=== PATIENT | male | born 1940 | race Caucasian/White ===

== ENCOUNTER → 2018-04-15 10:38 | Outpatient (CLI) | payer MEDICARE, BC, SELFPAY ==
--- NOTE | 2018-04-15 | DI.CT.S_ITS ---
PROCEDURE: CT ABDOMEN PELVIS W CON INDICATIONS: GENERALIZED ABDOMINAL PAIN TECHNIQUE: After the administration of oral and intravenous contrast, 5 mm thick sections acquired from the diaphragms to the symphysis. 5 mm thick coronal and sagittal reformats were performed. For radiation dose reduction, the following was used: automated exposure control, adjustment of mA and/or kV according to patient size. COMPARISON: [facility], , ABDOMEN LIMITED, 03/05/2017, 10:57. [facility], , RENAL COMPLETE, 03/12/2017, 9:47. FINDINGS: Image quality: Excellent. ABDOMEN: Lung bases: Lung bases are clear. Heart size is normal. Solid organs: Liver is normal in size and enhancement. Gallbladder appears normal. Biliary system is non-dilated. Pancreas enhances normally. Spleen is normal in size and enhancement. No adrenal nodules. Kidneys are normal in size and enhancement, without hydronephrosis but the left kidney is pelvic in positioning.. Peritoneum and bowel: Stomach, small bowel, and colon loops are normal in caliber and wall thickness. No free fluid or air. Moderate colonic obstipation. Nodes and vessels: No retroperitoneal or mesenteric adenopathy. Aorta and inferior vena cava are normal in caliber. Miscellaneous: No ventral hernias. PELVIS: Genitourinary: Bladder wall thickness is normal. Miscellaneous: No inguinal hernias or adenopathy. Moderate colonic obstipation. Left kidney within the left hemipelvis. Bones: No suspicious bony lesions. No vertebral body compression fractures. IMPRESSION: Moderate colonic obstipation, pelvic positioning of the left kidney. Dictated by: Damon Toth M.D. on 04/15/2018 at 14:01 Approved by: Damon Toth M.D. on 04/15/2018 at 14:04
== END ==
PROVIDERS: PCP Physician Assistant; Visit Provider Nurse Practitioner Family
DX: R10.84 Generalized abdominal pain (principal); K59.09 Other constipation
CPT/HCPCS: 74177; Q9967

== ENCOUNTER → 2019-02-24 10:04 | Outpatient (CLI) | payer MEDICARE, BC, SELFPAY ==
--- NOTE | 2019-02-24 | DI.US.S_ITS ---
PROCEDURE: US THYROID INDICATIONS: FACIAL FLUSHING, HYPERCALCEMIA TECHNIQUE: Real-time scanning was performed of the thyroid gland, with image documentation. COMPARISON: None. FINDINGS: Right: Thyroid lobe measures 4 x 1.3 x 1.6 cm, and is homogeneous in echotexture. Left: Thyroid lobe measures 2.7 x 0.8 x 1.1 cm, and is homogenous in echotexture. Isthmus: 4 mm thick. Nodule number: #1 Location: Upper to mid pole of right thyroid lobe Size: 5 x 3 x 4 mm. Composition: Predominately solid Echogenicity: Hypoechoic Shape: Wider than tall Margins: Smooth Echogenic foci: Punctate Total points: 6 ACR TI-RADS category: 4, moderately suspicious Nodule number: #2 Location: Lower pole of right thyroid lobe Size: 8 x 4 x 8 mm Composition: Solid Echogenicity: Hypoechoic Shape: Wider than tall Margins: Smooth Echogenic foci: None Total points: 4 ACR TI-RADS category: 4, moderately suspicious IMPRESSION: 1. 2 subcentimeter and moderately suspicious nodules in right thyroid lobe as described above. Continued sonographic followup is recommended. ACR TI-RADS definitions and recommendations: TI-RADS 1 (benign): 0 points. FNA not needed. TI-RADS 2 (not suspicious): 2 points. FNA not needed. TI-RADS 3 (mildly suspicious): 3 points. * FNA if 2.5 cm or larger, follow up if 1.5 cm or larger (at 1, 3, and 5 years). TI-RADS 4 (moderately suspicious): 4-6 points. * FNA if 1.5 cm or larger, follow up if 1 cm or larger (at 1, 2, 3, and 5 years). TI-RADS 5 (highly suspicious): 7 points or more. * FNA if 1 cm or larger, follow up if 0.5 cm or larger (every year for 5 years). Dictated by: Macho Lakhani M.D. on 02/24/2019 at 11:48 Approved by: Macho Lakhani M.D. on 02/24/2019 at 11:59
== END ==
PROVIDERS: PCP Physician Assistant; Visit Provider Family Medicine
DX: R23.2 Flushing (principal); E83.52 Hypercalcemia; E04.2 Nontoxic multinodular goiter
CPT/HCPCS: 76536

== ENCOUNTER → 2019-05-19 08:43 | Outpatient (CLI) | payer MEDICARE, BC, SELFPAY ==
--- NOTE | 2019-05-19 | DI.RAD.S_ITS ---
PROCEDURE: XR HIP W PEL IF DONE LT MIN 4V INDICATIONS: RIGHT HIP PAIN TECHNIQUE: AP pelvis with lateral view(s) of the left and right hip(s). COMPARISON: None. FINDINGS: Bones: No fractures or dislocations. Lower lumbar spondylosis. Bilateral hip degeneration. Pelvic ring appears intact. No suspicious bony lesions. Soft tissues: The visualized bowel gas pattern is normal. No suspicious soft tissue calcifications. IMPRESSION: Mild bilateral hip joint degeneration. If the patient's pain or other symptoms persist, consider further evaluation with MRI Lower lumbar spondylosis. Dictated by: Gerardo Reddy M.D. on 05/19/2019 at 10:53 Approved by: Gerardo Reddy M.D. on 05/19/2019 at 10:55
== END ==
PROVIDERS: PCP Family Medicine; Visit Provider Family Medicine
DX: M25.551 Pain in right hip (principal); M16.0 Bilateral primary osteoarthritis of hip; M47.816 Spondylosis without myelopathy or radiculopathy, lumbar region
CPT/HCPCS: 73522

== ENCOUNTER 2019-10-08 14:17 | Emergency (ER) | payer MEDICARE, BC, SELFPAY ==
[2019-10-08 14:35] VITALS: BP 124/73; PULSE 85; RESP 14; TEMP 36.8; O2SAT 99; BMI 24.3
[2019-10-08 17:55] VITALS: BP 148/78; PULSE 68; RESP 18; O2SAT 93
--- NOTE | 2019-10-08 18:21 | ED.GENADULT ---
HPI - General Adult General Chief complaint: Urogenital-Male Stated complaint: possible kidney stone, sent by [facility] Time Seen by Provider: 10/08/19 17:58 Source: patient Mode of arrival: Ambulatory Limitations: no limitations History of Present Illness HPI narrative: 79-year-old male. 12-24 hours of left-sided flank pain. States it is worse with palpation. Does seem to come and go. No changes in bowel. No changes in urination. [place] Was given Flomax for concerns of a kidney stone. Was told to come to the emergency department for CT scan. Patient states that he has never had a kidney stone in the past. No skin rashes over the area. No nausea or vomiting. No fevers. Related Data Home Medications Medication Instructions Recorded Confirmed aspirin 81 mg PO QDAY #0 01/22/17 ferrous sulfate [Iron (ferrous 325 mg PO QDAY #0 01/22/17 sulfate)] cholecalciferol (vitamin D3) 1,000 unit PO QDAY #0 02/28/17 [Vitamin D3] omega 9-xej-zxg-fish oil [Fish Oil] 1,000 mg PO #0 02/28/17 metoprolol succinate 25 mg PO DAILY 10/08/19 10/08/19 Previous Rx's Medication Instructions Recorded omeprazole 20 mg PO QAM #90 cap 06/13/16 cyclobenzaprine 10 mg PO TID PRN #10 tab 10/08/19 Allergies Allergy/AdvReac Type Severity Reaction Status Date / Time No Known Drug Allergies Allergy Verified 10/08/19 14:35 Review of Systems Constitutional Constitutional: Denies fever(s) Cardiovascular Cardiovascular: Denies chest pain and Denies dyspnea Respiratory Respiratory: Denies dyspnea Gastrointestinal Gastrointestinal: Denies abdominal pain and Denies vomiting Genitourinary Genitourinary: Denies hematuria, Denies dysuria and Reports flank pain Musculoskeletal Musculoskeletal: Denies myalgias and Denies arthralgias Integumentary/Breasts Skin/Breast: Denies rash Neurologic Neurologic: Denies behavioral changes Psychiatric Psychiatric: Denies behavioral changes Hematologic/Lymphatic Hematologic/Lymphatic: Denies easy bleeding and Denies easy bruising Patient History Medical History 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) Gastroesophageal reflux disease (Acute) 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) Wears hearing aid (12/21/16) Social History marital status: lives independently: Yes Exam Initial Vital Signs Initial Vital Signs: Vital Signs Temperature 98.2 F 10/08/19 14:35 Pulse Rate 85 10/08/19 14:35 Respiratory Rate 14 10/08/19 14:35 Blood Pressure 124/73 10/08/19 14:35 Pulse Oximetry 99 10/08/19 14:35 Const General: cooperative and comfortable HENMT Head: normal to inspection and normocephalic Resp Effort & Inspection: normal respiratory effort Auscultation: clear to auscultation bilaterally Cardio Rate: regular rate Rhythm: regular rhythm GI Inspection: non-distended Palpation: soft and No firm Back/Spine/Pelvis Back: CVA tenderness (Left) Skin Lesions: no lesions Rashes: no rashes Neuro General: alert, awake and oriented x3 Cognition: normal cognition Speech: speech normal Extrem General: normal to inspection and capillary refill normal Psych Appearance: grossly normal and well kempt Scores GCS [place] coma scale eye opening: Spontaneous [place] coma scale verbal response: Orientated [place] coma scale motor response: Obey commands Lan coma scale total score: 15 Course Orders Ordered: ED Orders 10/08/19 18:25 CT abdomen pelvis w con Stat 10/08/19 18:29 Complete Blood Count AUTO DIFF Stat Comprehensive Metabolic Panel Stat Lipase Stat Partial Thromboplastin Time Stat Prothrombin Time INR Stat Vital Signs Vital signs: Vital Signs - 8 hr 10/08/19 17:55 10/08/19 19:53 Pulse Rate 68 61 Respiratory Rate 18 15 Blood Pressure 134/66 Blood Pressure [Right Arm] 148/78 H Pulse Oximetry 93 100 Medical Decision Making Lab Data Lab results reviewed: Yes I reviewed the patient's lab results. Result diagrams: 10/08/19 18:29 10/08/19 18:29 Labs: Lab Results 10/08/19 10/08/19 10/08/19 Range/Units 18:29 18:29 18:29 WBC 6.4 (4.5-11.0) X10^3/uL RBC 4.48 L (4.5-5.9) X10^6/uL Hgb 14.4 (13.5-17.5) g/dL Hct 41.8 (41-53) % MCV 93.3 (80-100) fL MCH 32.2 (26-34) PG MCHC 34.5 (30-36) % RDW 12.9 (11.6-14.8) % Plt Count 219 (150-400) X10^3/uL Neut % (Auto) 55.8 (50-75) % Lymph % (Auto) 30.4 (25-40) % [place] % (Auto) 10.0 (3-14) % Eos % (Auto) 2.9 (2-4) % Baso % (Auto) 0.9 (0-2) % Neut # (Auto) 3600 (1155-1439) /uL Lymph # (Auto) 1900 (6695-4511) /uL [place] # (Auto) 600 (0-900) /uL Eos # (Auto) 200 (0-450) /uL Baso # (Auto) 100 (0-100) /uL PT 11.8 (10.1-12.7) SECONDS INR 1.0 (0.9-1.3) APTT 31 (26.4-36.2) SECONDS Sodium 138 (137-145) mmol/L Potassium 4.8 (3.4-5.1) mmol/L Chloride 101 (98-107) mmol/L Carbon Dioxide 28 (22-32) mmol/L BUN 31 H (9-20) mg/dL Creatinine 1.00 (0.66-1.25) mg/dL Estimated GFR > 60.0 (>60) mL/min BUN/Creatinine Ratio 31.0 H (6-22) Glucose 100 (80-110) mg/dL Calcium 10.6 H (8.4-10.2) mg/dL Total Bilirubin 0.5 (0.2-1.3) mg/dL AST 28 (17-59) IU/L ALT 22 (<50) IU/L Alkaline Phosphatase 60 (38-126) U/L Total Protein 7.8 (6.3-8.2) g/dL Albumin 4.4 (3.5-5.0) g/dL Globulin 3.4 (1.7-4.1) g/dL Albumin/Globulin Ratio 1.3 (1.0-2.8) Lipase 241 (23-300) U/L Urine Dip Bedside Urine Glucose Negative Bedside Urine Bilirubin - Negative Bedside Urine Ketone - Negative Urine Specific [place] 1.015 Bedside Urine Occult Blood - Negative Bedside Urine pH 6.0 Bedside Urine Protein - Negative Bedside Urine Urobilinogen - Negative Bedside Urine Nitrite - Negative Bedside Urine Leukocytes - Negative Esterase Point of care testing: Urine Dip Bedside Urine Glucose Negative Bedside Urine Bilirubin - Negative Bedside Urine Ketone - Negative Urine Specific [place] 1.015 Bedside Urine Occult Blood - Negative Bedside Urine pH 6.0 Bedside Urine Protein - Negative Bedside Urine Urobilinogen - Negative Bedside Urine Nitrite - Negative Bedside Urine Leukocytes - Negative Esterase Imaging Data CT scan - abdomen/pelvis: Radiologist's Impression: [address] [address] [address] Scan Report Signed Patient: Jeramy Riley TMR#: [id number] : 9Acct:[id number] Age/Sex: 79 / MDate of Service: 10/08/19 Loc: ED Accession Number: [id number] Procedure: CT abdomen pelvis w con Ordering Provider: Prasanna Biggs D.O. PROCEDURE: CT ABDOMEN PELVIS W CON INDICATIONS: Left flank pain TECHNIQUE: After the administration of intravenous contrast, 5 mm thick sections acquired from the diaphragm to the symphysis. 5 mm coronal and sagittal reformats were acquired. For radiation dose reduction, the following was used: automated exposure control, adjustment of mA and/or kV according to patient size. COMPARISON: [facility], CT, CT ABDOMEN PELVIS W CON, 04/15/2018, 11:27. FINDINGS: Image quality: Excellent. ABDOMEN: Lung bases: Lung bases are clear. Heart size is normal. Solid organs: Hepatic steatosis Gallbladder unremarkable. Biliary system is non dilated. Pancreas enhances normally. Spleen is normal in size and enhancement. No adrenal nodules. No hydronephrosis. Left pelvic ectopic kidney. Simple appearing right renal cyst. Peritoneum and bowel: Bowel loops demonstrate normal wall thickness and caliber. No free fluid or air. Colonic diverticulosis is seen without evidence of acute complication. Normal appendix. Nodes and vessels: No retroperitoneal or mesenteric adenopathy by size criteria. Aorta and inferior vena cava are normal in size. Miscellaneous: No ventral hernias. PELVIS: Genitourinary: Bladder wall thickness is normal. Prostate is enlarged and there is presumed medium lobe hypertrophy although recommend clinical correlation No pelvic adenopathy. Post surgical changes related to bilateral inguinal hernia repair. No definite right-sided inguinal hernia. Small residual/recurrent left inguinal fat-containing hernia although the appearance is unchanged since 04/15/18 Bones: No suspicious bony lesions. No vertebral body compression fractures. Spondylosis and facet arthropathy. Diffuse osteopenia. IMPRESSION: Overall, no acute abnormality to explain left-sided flank pain. Grossly unchanged examination since 04/15/18 as discussed above Colonic diverticulosis is seen without evidence of acute complication. Dictated by: Gerardo Reddy M.D. on 10/08/2019 at 19:20 Approved by: Gerardo Reddy M.D. on 10/08/2019 at 19 MDM Narrative Medical decision making narrative: Patient's urine is clear. His chemistry is unremarkable. Kidney function test unremarkable. Has reproducible left flank symptoms. I initially informed him that it is unlikely a kidney stone given his exam however since he was sent from the [place] for CT scan 1 was ordered. It showed no kidney/ureteral stone and no other acute intra-abdominal pathology. Due to lack of a rash of low suspicion for zoster however patient was instructed that if he develops a rash over the next couple days he should be re-evaluated. Was reproducible with palpation. I do suspect a musculoskeletal etiology. We discussed return precautions and follow-up instructions. He expressed understanding agreement with plan. Discharge Plan Departure Patient Disposition: Home Clinical Impression: Acute left flank pain Discharge Date/Time: 10/08/19 19:55 Instructions: DI for Flank Pain Activity Restrictions/Additional Instructions: Recommend that if you develop a rash in the next 24-48 hours you get seen by your primary provider has this could be concerning for shingles. Take the muscle relaxer as needed. It can make you drowsy so be careful with getting up especially at night. Return to the emergency department for any new symptoms Prescriptions: New cyclobenzaprine 10 mg tablet 10 mg PO TID PRN (Reason: muscle spasm) Qty: 10 RF: 0 No Action omeprazole 20 MG capsule,delayed release(DR/EC) 20 mg PO QAM Qty: 90 RF: 3 aspirin 81 MG tablet,delayed release (DR/EC) 81 mg PO QDAY Qty: 0 RF: 0 ferrous sulfate [Iron (ferrous sulfate)] 325 MG tablet 325 mg PO QDAY Qty: 0 RF: 0 cholecalciferol (vitamin D3) [Vitamin D3] 1,000 UNIT tablet 1,000 unit PO QDAY Qty: 0 RF: 0 omega 2-scv-thy-fish oil [Fish Oil] 1,000 MG capsule 1,000 mg PO Qty: 0 RF: 0 metoprolol succinate 25 mg tablet extended release 24 hr 25 mg PO DAILY RF: 0 Referrals: Prasanna Zhang [Primary Care Provider] -
--- NOTE | 2019-10-08 18:25 | DI.CT.S_ITS ---
PROCEDURE: CT ABDOMEN PELVIS W CON INDICATIONS: Left flank pain TECHNIQUE: After the administration of intravenous contrast, 5 mm thick sections acquired from the diaphragm to the symphysis. 5 mm coronal and sagittal reformats were acquired. For radiation dose reduction, the following was used: automated exposure control, adjustment of mA and/or kV according to patient size. COMPARISON: [facility], CT, CT ABDOMEN PELVIS W CON, 04/15/2018, 11:27. FINDINGS: Image quality: Excellent. ABDOMEN: Lung bases: Lung bases are clear. Heart size is normal. Solid organs: Hepatic steatosis Gallbladder unremarkable. Biliary system is non dilated. Pancreas enhances normally. Spleen is normal in size and enhancement. No adrenal nodules. No hydronephrosis. Left pelvic ectopic kidney. Simple appearing right renal cyst. Peritoneum and bowel: Bowel loops demonstrate normal wall thickness and caliber. No free fluid or air. Colonic diverticulosis is seen without evidence of acute complication. Normal appendix. Nodes and vessels: No retroperitoneal or mesenteric adenopathy by size criteria. Aorta and inferior vena cava are normal in size. Miscellaneous: No ventral hernias. PELVIS: Genitourinary: Bladder wall thickness is normal. Prostate is enlarged and there is presumed medium lobe hypertrophy although recommend clinical correlation No pelvic adenopathy. Post surgical changes related to bilateral inguinal hernia repair. No definite right-sided inguinal hernia. Small residual/recurrent left inguinal fat-containing hernia although the appearance is unchanged since 04/15/18 Bones: No suspicious bony lesions. No vertebral body compression fractures. Spondylosis and facet arthropathy. Diffuse osteopenia. IMPRESSION: Overall, no acute abnormality to explain left-sided flank pain. Grossly unchanged examination since 04/15/18 as discussed above Colonic diverticulosis is seen without evidence of acute complication. Dictated by: Gerardo Reddy M.D. on 10/08/2019 at 19:20 Approved by: Gerardo Reddy M.D. on 10/08/2019 at 19:25
[2019-10-08 18:41] LABS: Add Manual Diff / Slide Review NO; Basophils Absolute Auto 100 /uL (0-100); Basophils Percent Auto 0.9 % (0-2); Eosinophils Absolute Auto 200 /uL (0-450); Eosinophils Percent Auto 2.9 % (2-4); Hematocrit 41.8 % (41-53); Hemoglobin 14.4 g/dL (13.5-17.5); Lymphocytes Absolute Auto 1900 /uL (1100-4500); Lymphocytes Percent Auto 30.4 % (25-40); Mean Corpuscular HGB Conc 34.5 % (30-36); Mean Corpuscular Hemoglobin 32.2 PG (26-34); Mean Corpuscular Volume 93.3 fL (80-100); Monocytes Absolute Auto 600 /uL (0-900); Neutrophils Absolute Auto 3600 /uL (1500-7000); Neutrophils Percent Auto 55.8 % (50-75); Platelet Count 219 X10^3/uL (150-400); Red Blood Cell Count 4.48 X10^6/uL (4.5-5.9); Red Cell Distribution Width 12.9 % (11.6-14.8); White Blood Cell Count 6.4 X10^3/uL (4.5-11.0)
[2019-10-08 18:45] LABS: Prothrombin Time 11.8 SECONDS (10.1-12.7)
[2019-10-08 18:48] LABS: PTT Partial Thromboplastin Tim 31 SECONDS (26.4-36.2)
[2019-10-08 18:50] LABS: Alanine Aminotransferase 22 IU/L (<50); Albumin 4.4 g/dL (3.5-5.0); Albumin Globulin Ratio 1.3 (1.0-2.8); Alkaline Phosphatase 60 U/L (38-126); Aspartate Aminotransferase 28 IU/L (17-59); Bilirubin Total 0.5 mg/dL (0.2-1.3); Blood Urea Nitrogen 31 mg/dL (9-20); Calcium 10.6 mg/dL (8.4-10.2); Carbon Dioxide 28 mmol/L (22-32); Chloride 101 mmol/L (98-107); Estimated Glomerular Filt Rate > 60.0 mL/min (>60); Globulin 3.4 g/dL (1.7-4.1); Glucose 100 mg/dL (80-110); HEMOLYSIS 16 (0-50); Lipase 241 U/L (23-300); Potassium 4.8 mmol/L (3.4-5.1); Sodium 138 mmol/L (137-145); Total Protein 7.8 g/dL (6.3-8.2)
[2019-10-08 19:53] VITALS: BP 134/66; PULSE 61; RESP 15; O2SAT 100
== END 2019-10-08 19:55 | disposition home or self-care (01) ==
PROVIDERS: Emergency Medicine; Emergency Provider Emergency Medicine; PCP Family Medicine
DX: R10.9 Unspecified abdominal pain (principal)
CPT/HCPCS: 36415; 74177; 80053; 81003; 83690; 85025; 85610; 85730; 99284; Q9967

== ENCOUNTER → 2020-11-22 09:49 | Outpatient (CLI) | payer MEDICARE, BC, SELFPAY ==
[2020-11-22 19:34] LABS: Add Manual Diff / Slide Review NO; Basophils Absolute Auto 100 /uL (0-100); Basophils Percent Auto 1.6 % (0-2); Eosinophils Absolute Auto 200 /uL (0-450); Eosinophils Percent Auto 4.4 % (2-4); Hematocrit 41.3 % (41-53); Hemoglobin 13.7 g/dL (13.5-17.5); Lymphocytes Absolute Auto 1700 /uL (1100-4500); Lymphocytes Percent Auto 39.7 % (25-40); Mean Corpuscular HGB Conc 33.2 % (30-36); Mean Corpuscular Hemoglobin 31.7 PG (26-34); Mean Corpuscular Volume 95.5 fL (80-100); Monocytes Absolute Auto 500 /uL (0-900); Monocytes Percent Auto 12.4 % (3-14); Neutrophils Absolute Auto 1800 /uL (1500-7000); Neutrophils Percent Auto 41.9 % (50-75); Platelet Count 219 X10^3/uL (150-400); Red Blood Cell Count 4.32 X10^6/uL (4.5-5.9); Red Cell Distribution Width 13.5 % (11.6-14.8); White Blood Cell Count 4.2 X10^3/uL (4.5-11.0)
[2020-11-22 19:38] LABS: Alanine Aminotransferase 23 IU/L (<50); Albumin Globulin Ratio 1.2 (1.0-2.8); Alkaline Phosphatase 66 U/L (38-126); Aspartate Aminotransferase 117 IU/L (17-59); BUN Creatinine Ratio 30.7 (6-22); Bilirubin Total 0.4 mg/dL (0.2-1.3); Blood Urea Nitrogen 27 mg/dL (9-20); Calcium 10.3 mg/dL (8.4-10.2); Carbon Dioxide 30 mmol/L (22-32); Chloride 104 mmol/L (98-107); Estimated Glomerular Filt Rate > 60.0 mL/min (>60); Globulin 3.3 g/dL (1.7-4.1); Glucose 81 mg/dL (80-110); HEMOLYSIS 25 (0-50); Potassium 4.7 mmol/L (3.4-5.1); Sodium 139 mmol/L (137-145); Total Protein 7.3 g/dL (6.3-8.2)
[2020-11-22 20:05] LABS: TSH w/ Reflex to FT4 1.36 uIU/mL (0.47-4.68)
== END ==
PROVIDERS: PCP Internal Medicine; Visit Provider Internal Medicine
DX: R06.02 Shortness of breath (principal); R53.83 Other fatigue
CPT/HCPCS: 80053; 84443; 85025

== ENCOUNTER 2021-08-29 14:21 | Emergency (ER) | payer MEDICARE, BC, SELFPAY ==
[2021-08-29] VITALS (11 sets, daily range): BP systolic 130–145; BP diastolic 64–93; PULSE 60–65; RESP 16–22; TEMP 36.3; O2SAT 91–100; BMI 24.3
[2021-08-29 15:28] LABS: Prothrombin Time 11.5 SECONDS (10.1-12.7)
[2021-08-29 15:29] LABS: Add Manual Diff / Slide Review NO; Basophils Absolute Auto 100 /uL (0-100); Basophils Percent Auto 1.2 % (0-2); Eosinophils Absolute Auto 300 /uL (0-450); Eosinophils Percent Auto 4.2 % (2-4); Hematocrit 40.1 % (41-53); Hemoglobin 13.5 g/dL (13.5-17.5); Lymphocytes Absolute Auto 1800 /uL (1100-4500); Lymphocytes Percent Auto 29.1 % (25-40); Mean Corpuscular HGB Conc 33.7 % (30-36); Mean Corpuscular Hemoglobin 32.1 PG (26-34); Mean Corpuscular Volume 95.2 fL (80-100); Monocytes Absolute Auto 800 /uL (0-900); Monocytes Percent Auto 12.5 % (3-14); Neutrophils Absolute Auto 3300 /uL (1500-7000); Platelet Count 231 X10^3/uL (150-400); Red Blood Cell Count 4.21 X10^6/uL (4.5-5.9); Red Cell Distribution Width 13.2 % (11.6-14.8); White Blood Cell Count 6.1 X10^3/uL (4.5-11.0)
[2021-08-29 15:31] LABS: PTT Partial Thromboplastin Tim 32 SECONDS (26.4-36.2)
--- NOTE | 2021-08-29 15:40 | DI.CT.S_ITS ---
PROCEDURE: CT ABDOMEN PELVIS W CON INDICATIONS: IV contrast only/abdominal pain/GI bleed TECHNIQUE: After the administration of intravenous contrast, axial sections acquired from the lung bases to the pubic symphysis. Coronal and sagittal reformats were performed. For radiation dose reduction, the following was used: automated exposure control, adjustment of mA and/or kV according to patient size. COMPARISON: [facility], CT, CT ABDOMEN PELVIS W CON, 10/08/2019, 18:57. FINDINGS: Image quality: Excellent. Lung bases: Unremarkable. Heart: No significant findings. ABDOMEN: Liver: Unremarkable. Gallbladder: Unremarkable. Biliary ducts: Unremarkable. Pancreas: Unremarkable. Spleen: Unremarkable. Adrenal Glands: Unremarkable. Kidneys and Ureters: Right kidney is normal in size and location. Left kidney is within the pelvis. Stomach and Bowel: Stomach and small bowel are grossly unremarkable. Appendix is not seen. No evidence of appendicitis. Moderate right colonic stool. There is thickening of the descending and sigmoid colon. Diverticulosis of the descending and sigmoid colon. Mild pericolonic fat stranding surrounds the sigmoid and distal descending colon. Peritoneum: No abnormal intraperitoneal fluid. No free air. Ventral Wall: No hernias. Abdominal Nodes: No retroperitoneal or mesenteric adenopathy by size criteria. Vessels: Aorta and inferior vena cava are normal in size. PELVIS: Pelvic Organs: Prostate is enlarged and indents the urinary bladder base, as before. Bladder: Unremarkable. Pelvic Nodes: No enlarged lymph nodes. Miscellaneous: No hernias are seen. Bones: Unremarkable. IMPRESSION: 1. Thickening of the distal descending and sigmoid colon. Differential considerations include ischemia, infection (e.g., diverticulitis), and inflammation. 2. Appendix not seen. No evidence of appendicitis. 3. Enlarged prostate. Recommend correlation with PSA values. Dictated by: Amber Rendon M.D. on 08/29/2021 at 16:26 Approved by: Amber Rendon M.D. on 08/29/2021 at 16:29
--- NOTE | 2021-08-29 15:41 | ED.GIBLEED ---
HPI - GI Bleed General Chief complaint: GI Bleed Stated complaint: bleeding in stool, sent by [facility] Time Seen by Provider: 08/29/21 15:02 Mode of arrival: Ambulatory History of Present Illness HPI Narrative: Patient here with complaints of bright red blood per rectum for the past day. Sent from his clinic. No dizziness no syncope no dyspnea no chest pain. Has had abdominal cramping and bloating sensation. Had colonoscopy 1 year ago in [place]. History of polyps but no known history of diverticulosis according to patient and . However CT scan from October 08, 2019 of the abdomen pelvis does show diverticulosis. Hemoglobin from this morning 14.9 now 13.5. Patient states is not on any blood thinners Related Data Home Medications Medication Instructions Recorded Confirmed aspirin 81 mg tablet,delayed 81 mg PO QDAY #0 01/22/17 07/06/21 release ferrous sulfate 325 mg (65 mg 325 mg PO QDAY #0 01/22/17 07/06/21 iron) tablet (Iron (ferrous sulfate)) omega 5-isb-hlz-fish oil 1,000 mg 1,000 mg PO #0 02/28/17 07/06/21 (120 mg-180 mg) capsule (Fish Oil) metoprolol succinate 25 mg 12.5 mg PO DAILY tab 07/10/21 tablet,extended release 24 hr Previous Rx's Medication Instructions Recorded cyclobenzaprine 10 mg tablet 10 mg PO TID PRN #10 tab 10/08/19 omeprazole 20 mg capsule,delayed 20 mg PO QAM #90 cap 04/11/21 release tramadol 50 mg tablet 50 mg PO Q4-6H PRN #42 tab 06/08/21 ciprofloxacin HCl 500 mg tablet 500 mg PO BID #14 tab 08/29/21 (Cipro) metronidazole 500 mg tablet 500 mg PO TID #21 tab 08/29/21 Allergies Allergy/AdvReac Type Severity Reaction Status Date / Time bee venom protein (honey bee) Allergy Severe Anaphylaxis Verified 05/30/21 14:16 Review of Systems Review of Systems Narrative: GENERAL: Denies chills, fatigue, malaise, fever, sweats. 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 EYES: Pupils equal round No scleral icterus. [place] conjunctivae ENT: Mucous membranes moist. NECK: Trachea midline. CARDIOVASCULAR: Regular rate and rhythm without murmurs RESPIRATORY: Clear to auscultation. Breath sounds equal bilaterally. No wheezes, rales, or rhonchi. GASTROINTESTINAL: Abdomen soft, non-tender, rectal exam with scant amount of mucus see blood on glove. No hematochezia. No melena no black stools. Hemoccult positive, no peritoneal signs EXTREMITIES: No gross deformities. BACK: No flank tenderness. NEURO: AOx4. SKIN: Warm and dry PSYCH: Not anxious, is cooperative Initial Vital Signs Initial Vital Signs: Vital Signs Temperature 97.4 F L 08/29/21 14:33 Pulse Rate 61 08/29/21 14:33 Respiratory Rate 18 08/29/21 14:33 Blood Pressure 131/64 08/29/21 14:33 Pulse Oximetry 99 08/29/21 14:33 Course Course Course Narrative: No new issues during course of stay. Patient had a small amount a spot blood in the commode in the bathroom during course of stay. Orders Ordered: Discontinued Medications Ciprofloxacin (Ciprofloxacin 250 Mg Tablet) 500 mg PO NOW ONE Stop: 08/29/21 17:02 Last Admin: 08/29/21 17:08 Dose: 500 mg Documented by: ALY Sodium Chloride (Normal Saline 0.9%) 500 mls @ 1,000 mls/hr IV BOLUS ONE Stop: 08/29/21 16:09 Last Infusion: 08/29/21 17:08 Dose: 0 mls/hr Documented by: Admin: 08/29/21 16:07 Dose: 1,000 mls/hr Documented by: ALY Metronidazole (Metronidazole 500 Mg Tablet) 500 mg PO NOW ONE Stop: 08/29/21 17:02 Last Admin: 08/29/21 17:08 Dose: 500 mg Documented by: ALY Reevaluation(s) Reevaluation #1: Spoke with patient and results and treatment plan. They agree with trial of antibiotics at home and return precautions reviewed with him. Spoke with them that I discuss with hospitalist as well as general surgeon. Time: 17:00 Consultations Consultation #1: Spoke with hospitalist, dr marcial, at this time he feels appropriate for patient for discharge home for trial of antibiotics. Treatment for diverticulitis. No hypotension no tachycardia. Hemoglobin is stable. Time: 16:53 Consultation #2: Spoke with Dr. Foster, general surgeon. Appropriate for discharge home with stable vital signs and hemoglobin. Not toxic appearing Time: 16:56 Vital Signs Vital signs: Vital Signs - 8 hr 08/29/21 14:33 08/29/21 14:53 08/29/21 14:54 Temperature 97.4 F L Pulse Rate 61 65 Respiratory Rate 18 Blood Pressure 131/64 145/68 H Pulse Oximetry 99 92 98 08/29/21 14:56 08/29/21 15:00 08/29/21 15:30 Temperature Pulse Rate 60 60 60 Respiratory Rate 21 20 17 Blood Pressure 142/68 H 137/66 Pulse Oximetry 99 99 100 08/29/21 16:13 08/29/21 16:26 Temperature Pulse Rate 60 60 Respiratory Rate 22 19 Blood Pressure 139/65 Pulse Oximetry 91 99 MDM - GI Bleed Differential Diagnosis Differential diagnosis: Likely hemorrhoids, infectious diarrhea, Lower gastrointestinal hemorrhage, hematochezia, melena, anal fissure and other (Diverticulosis/diverticulitis) Lab Data Result diagrams: 08/29/21 15:10 08/29/21 15:10 Labs: Lab Results 08/29/21 08/29/21 08/29/21 Range/Units 15:10 15:10 15:10 WBC 6.1 (4.5-11.0) X10^3/uL RBC 4.21 L (4.5-5.9) X10^6/uL Hgb 13.5 (13.5-17.5) g/dL Hct 40.1 L (41-53) % MCV 95.2 (80-100) fL MCH 32.1 (26-34) PG MCHC 33.7 (30-36) % RDW 13.2 (11.6-14.8) % Plt Count 231 (150-400) X10^3/uL Neut % (Auto) 53.0 (50-75) % Lymph % (Auto) 29.1 (25-40) % [place] % (Auto) 12.5 (3-14) % Eos % (Auto) 4.2 H (2-4) % Baso % (Auto) 1.2 (0-2) % Neut # (Auto) 3300 (4960-1700) /uL Lymph # (Auto) 1800 (7789-3579) /uL [place] # (Auto) 800 (0-900) /uL Eos # (Auto) 300 (0-450) /uL Baso # (Auto) 100 (0-100) /uL PT 11.5 (10.1-12.7) SECONDS INR 1.0 (0.9-1.3) APTT 32 (26.4-36.2) SECONDS Sodium 137 (137-145) mmol/L Potassium 4.1 (3.4-5.1) mmol/L Chloride 104 (98-107) mmol/L Carbon Dioxide 28 (22-32) mmol/L BUN 23 H (9-20) mg/dL Creatinine 1.04 (0.66-1.25) mg/dL Estimated GFR > 60.0 (>60) mL/min BUN/Creatinine Ratio 22.1 H (6-22) Glucose 98 (80-110) mg/dL Calcium 10.3 H (8.4-10.2) mg/dL Total Bilirubin 0.5 (0.2-1.3) mg/dL AST 33 (17-59) IU/L ALT 32 (<50) IU/L Alkaline Phosphatase 59 (38-126) U/L Total Protein 7.4 (6.3-8.2) g/dL Albumin 4.3 (3.5-5.0) g/dL Globulin 3.1 (1.7-4.1) g/dL Albumin/Globulin Ratio 1.4 (1.0-2.8) SARS-CoV-2 (PCR) (Negative) Blood Type Antibody Screen 08/29/21 08/29/21 Range/Units 15:10 15:10 WBC (4.5-11.0) X10^3/uL RBC (4.5-5.9) X10^6/uL Hgb (13.5-17.5) g/dL Hct (41-53) % MCV (80-100) fL MCH (26-34) PG MCHC (30-36) % RDW (11.6-14.8) % Plt Count (150-400) X10^3/uL Neut % (Auto) (50-75) % Lymph % (Auto) (25-40) % [place] % (Auto) (3-14) % Eos % (Auto) (2-4) % Baso % (Auto) (0-2) % Neut # (Auto) (5588-7087) /uL Lymph # (Auto) (9384-5224) /uL [place] # (Auto) (0-900) /uL Eos # (Auto) (0-450) /uL Baso # (Auto) (0-100) /uL PT (10.1-12.7) SECONDS INR (0.9-1.3) APTT (26.4-36.2) SECONDS Sodium (137-145) mmol/L Potassium (3.4-5.1) mmol/L Chloride (98-107) mmol/L Carbon Dioxide (22-32) mmol/L BUN (9-20) mg/dL Creatinine (0.66-1.25) mg/dL Estimated GFR (>60) mL/min BUN/Creatinine Ratio (6-22) Glucose (80-110) mg/dL Calcium (8.4-10.2) mg/dL Total Bilirubin (0.2-1.3) mg/dL AST (17-59) IU/L ALT (<50) IU/L Alkaline Phosphatase (38-126) U/L Total Protein (6.3-8.2) g/dL Albumin (3.5-5.0) g/dL Globulin (1.7-4.1) g/dL Albumin/Globulin Ratio (1.0-2.8) SARS-CoV-2 (PCR) Negative (Negative) Blood Type A Positive Antibody Screen Negative Urine Dip Bedside Urine Glucose Negative Bedside Urine Bilirubin - Negative Bedside Urine Ketone - Negative Urine Specific [place] 1.025 Bedside Urine Occult Blood - Negative Bedside Urine pH 5.5 Bedside Urine Protein - Negative Bedside Urine Urobilinogen - Negative Bedside Urine Nitrite - Negative Bedside Urine Leukocytes - Negative Esterase Imaging Data CT scan - abdomen/pelvis: Radiologist's Impression: [address] [address] [address] Scan Report Signed Patient: Jeramy Riley MR#: [id number] : 1940 Acct:[id number] Age/Sex: 81 / M Date of Service: 08/29/21 Loc: ED Accession Number: [id number] ?? Procedure: CT abdomen pelvis w con Ordering Provider: Joshua Almendarez MD PROCEDURE:? CT ABDOMEN PELVIS W CON ? INDICATIONS:? IV contrast only/abdominal pain/GI bleed ? TECHNIQUE:? After the administration of intravenous contrast, axial sections acquired from the lung bases to the pubic symphysis.? Coronal and sagittal reformats were performed.? For radiation dose reduction, the following was used:? automated exposure control, adjustment of mA and/or kV according to patient size.? ? COMPARISON:? [facility], CT, CT ABDOMEN PELVIS W CON, 10/08/2019, 18:57. ? FINDINGS:? Image quality:? Excellent.? ? Lung bases:? Unremarkable. Heart:? No significant findings. ? ABDOMEN: Liver:? Unremarkable.? ? Gallbladder:? Unremarkable.? ? Biliary ducts:? Unremarkable.? ? Pancreas:? Unremarkable.? ? Spleen:? Unremarkable.? ? Adrenal Glands:? Unremarkable.? ? Kidneys and Ureters:? Right kidney is normal in size and location.? Left kidney is within the pelvis. ? Stomach and Bowel:? Stomach and small bowel are grossly unremarkable.? Appendix is not seen.? No evidence of appendicitis.? Moderate right colonic stool.? There is thickening of the descending and sigmoid colon.? Diverticulosis of the descending and sigmoid colon. ?Mild pericolonic fat stranding surrounds the sigmoid and distal descending colon. Peritoneum:? No abnormal intraperitoneal fluid.? No free air.? ? Ventral Wall: ? No hernias.? Abdominal Nodes:? No retroperitoneal or mesenteric adenopathy by size criteria.? Vessels:? Aorta and inferior vena cava are normal in size.? ? PELVIS: Pelvic Organs:? Prostate is enlarged and indents the urinary bladder base, as before. Bladder:? Unremarkable.? ? Pelvic Nodes: No enlarged lymph nodes.? Miscellaneous: No hernias are seen. ? ? ? Bones:? Unremarkable.? IMPRESSION:? 1. Thickening of the distal descending and sigmoid colon.? Differential considerations include ischemia, infection (e.g., diverticulitis), and inflammation. 2. Appendix not seen.? No evidence of appendicitis. 3. Enlarged prostate.? Recommend correlation with PSA values.? ? ? Dictated by: Amber Rendon M.D. on 08/29/2021 at 16:26 ? ? Approved by: Amber Rendon M.D. on 08/29/2021 at 16:29 ? ECG Data Interpretation: Atrial paced rhythm, right bundle-branch block, rate 60 MDM Narrative Medical decision making narrative: Appropriate for discharge home. Exam and laboratory studies and vital signs otherwise reassuring. Return precautions reviewed patient and . They are comfortable for trial of antibiotics at home and follow-up with his surgeon for a colonoscopy after treatment. Also give patient referral to Dr. Foster for colonoscopy. Not toxic at discharge. No hypotension or tachycardia. No dizziness or syncope. Discharge Plan Departure Patient Disposition: Home Clinical Impression: Diverticulitis Instructions: DI for Diverticulitis, Gastrointestinal Bleeding Activity Restrictions/Additional Instructions: See family doctor for referral for colonoscopy with your surgeon after treatment of diverticulitis. Or you may call Dr. Foster tomorrow to make an appointment. Return immediately if worse of increased bleeding or for any questions or concerns. Do not consume any alcohol products while taking antibiotics. Prescriptions: New ciprofloxacin HCl [Cipro] 500 mg tablet 500 mg PO BID Qty: 14 0RF metronidazole 500 mg tablet 500 mg PO TID Qty: 21 0RF No Action aspirin 81 MG tablet,delayed release (DR/EC) 81 mg PO QDAY Qty: 0 0RF ferrous sulfate [Iron (ferrous sulfate)] 325 MG tablet 325 mg PO QDAY Qty: 0 0RF omega 8-kgc-hnz-fish oil [Fish Oil] 1,000 MG capsule 1,000 mg PO Qty: 0 0RF omeprazole 20 mg capsule,delayed release(DR/EC) 20 mg PO QAM Qty: 90 3RF metoprolol succinate 25 mg tablet extended release 24 hr 12.5 mg PO DAILY 0RF cyclobenzaprine 10 mg tablet 10 mg PO TID PRN (Reason: muscle spasm) Qty: 10 0RF tramadol 50 mg tablet 50 mg PO Q4-6H PRN (Reason: pain) Qty: 42 0RF Referrals: Crispin Morris DO [Primary Care Provider] - Cierra Foster MD [Physician] -
[2021-08-29 15:43] LABS: Alanine Aminotransferase 32 IU/L (<50); Albumin 4.3 g/dL (3.5-5.0); Albumin Globulin Ratio 1.4 (1.0-2.8); Alkaline Phosphatase 59 U/L (38-126); Aspartate Aminotransferase 33 IU/L (17-59); BUN Creatinine Ratio 22.1 (6-22); Bilirubin Total 0.5 mg/dL (0.2-1.3); Blood Urea Nitrogen 23 mg/dL (9-20); Calcium 10.3 mg/dL (8.4-10.2); Carbon Dioxide 28 mmol/L (22-32); Chloride 104 mmol/L (98-107); Estimated Glomerular Filt Rate > 60.0 mL/min (>60); Globulin 3.1 g/dL (1.7-4.1); Glucose 98 mg/dL (80-110); HEMOLYSIS < 15 (0-50); Potassium 4.1 mmol/L (3.4-5.1); Sodium 137 mmol/L (137-145); Total Protein 7.4 g/dL (6.3-8.2)
[2021-08-29] MEDS: SODIUM CHLORIDE 0.9% 500 ML 1000 ML IV (16:07)
[2021-08-29 16:15] LABS: COVID19 - ADMIT (NP swab/PCR) Negative (Negative)
[2021-08-29] MEDS: CIPROFLOXACIN 250 MG TABLET 500 MG PO (17:08)
[2021-08-29] MEDS: metroNIDAZOLE 500 MG TABLET PO (17:08)
== END 2021-08-29 17:32 | disposition home or self-care (01) ==
PROVIDERS: Emergency Provider Emergency Medicine; PCP Family Medicine
DX: K57.32 Diverticulitis of large intestine without perforation or abscess without bleeding (principal); I45.10 Unspecified right bundle-branch block; Z20.822 Contact with and (suspected) exposure to COVID-19; R03.0 Elevated blood-pressure reading, without diagnosis of hypertension
CPT/HCPCS: 36415; 74177; 80053; 81003; 85025; 85610; 85730; 86850; 86900; 86901; 87635; 93005; 93010; 96360; 99284; C9803; Q9967

== ENCOUNTER → 2022-02-23 07:19 | Outpatient (CLI) | payer MEDICARE, BC, SELFPAY ==
[2022-02-23 19:29] LABS: COVID19 - ORCAS (NP or Nasal) Negative (Negative)
== END ==
PROVIDERS: PCP Family Medicine; Visit Provider Family Medicine
DX: Z20.822 Contact with and (suspected) exposure to COVID-19 (principal)
CPT/HCPCS: C9803; U0003

== ENCOUNTER 2022-02-26 06:21 | Day surgery (SDC) | payer MEDICARE, BC, SELFPAY ==
[2022-02-21 12:12] VITALS: BMI 25.7
[2022-02-26] VITALS (11 sets, daily range): BP systolic 119–150; BP diastolic 58–84; PULSE 60–96; RESP 12–16; TEMP 35.6–36.3; O2SAT 97–100; BMI 25.7
--- NOTE | 2022-02-26 | PATH_ITS ---
[facility] Accession Number: [id number] . 01 Material submitted: . prostate - MEDIAL LOBE OF PROSTATE . 01 Diagnosis: Medial Lobe of Prostate, Transurethral Resection: Portions of benign fibromuscular stromal hyperplasia. Negative for features of atypia or malignancy. No well-preserved glandular elements present for evaluation. MRV 03/05/2022 0807 Local . 01 Electronically signed: . Mandi Cordoba MD, Pathologist NPI- [id number] . 01 Gross description: . Received in formalin in a specimen container labeled with the patient's name, medical record number, and medial lobe of prostate, is an aggregate of multiple irregularly shaped, slightly cauterized will soft tissue fragments that measure 3.0 x 2.0 x 0.9 cm. The specimen outer surface is entirely inked in blue, and fragments are serially sectioned. The specimen is entirely submitted in cassettes A1-A3. ([id number]) /V 02/27/2022 1158 Local . 01 Microscopic: . . . 01 Pathologist provided ICD-10: N32.0 . 01 CPT . 988433 Specimen Comment: A courtesy copy of this report has been sent to [phone] Performed at: 01 [facility] [address] [place] [address] Suite [facility], [place], [place] [id number] MD Steven Green MD Phone: [phone]
--- NOTE | 2022-02-26 07:22 | PM.PREOP ---
Pre-operative Note COVID-19 COVID-19 status: Negative Result date/Date tested (Pos, Neg/Pending): 02/23/22 Criteria for continued procedure: Delay expected to result in less-positive ultimate med/surg outcome and Non-surgical alternatives not available or appropriate per current SOC Interval Note History & Physical reviewed/Exam performed by Physician: Yes Changes to H&P: No
[2022-02-26] MEDS: LACTATED RINGERS 1,000 ML 84 ML IV ×3 (07:40→10:17)
[2022-02-26] MEDS: BELLADONNA/OPIUM SUPPOSITORIES 1 EACH PR (07:55)
[2022-02-26] MEDS: CEFAZOLIN 2 GM/20 ML SYRINGE IV (07:55)
--- NOTE | 2022-02-26 08:29 | SUR.OPER ---
Lithotomy on padded OR bed, head on pillow, arms secured on padded arm boards at <90 degrees abduction. Legs secured in padded yellow fins stirrups.
--- NOTE | 2022-02-26 09:50 | PM.OP.1 ---
Procedure & Clinicians Procedure: GreenLight photo vaporization/laser enucleation of prostate with right stent placement Same procedure as scheduled: No (Stent placement was done as a precaution because of proximity of resection) Indications: This 82-year-old male with profound bladder outlet obstruction was found to have a large median lobe and presents at this time for photo vaporization and laser enucleation of prostate to alleviate his outlet obstruction. Surgeon: Joshua Hamilton Click Yes if Unassisted: Yes Anesthesia Type: General Operative Notes Findings: Urethral meatus and urethra are normal. Prostate shows moderate approaching severe obstructive character however there is a large median lobe filling the bladder outlet acting as a ball-valve. On the right the edge of the median lobe was in very close proximity to the right ureteral orifice and necessitating a resection with the laser closed to the right ureteral orifice. The right ureteral orifice was patent at the end of the case but because of the proximity of resection and to avoid any chance of ureteral obstruction a right stent was placed. The bladder exhibited severe trabeculation and cellules. The left ureteral orifice was more distant from resection and in the procedure had good efflux of clear urine and appeared normal. Total laser time of 36 minutes 18 seconds total laser energy used 300,010 joules. Closure Type: not applicable Specimen(s): other (Median lobe prostate tissue) Applied: other (7 [place] multi length stent right collecting system no string) Estimated Blood Loss (mL): 10 Procedure in detail: Procedure in detail: After informed consent was obtained, the patient was identified and brought to the operating room. Patient was then placed in a supine position on the operative table and anesthesia was induced to maintain. After ensuring an adequate level of anesthesia the patient was transitioned to the lithotomy position. The patient was then prepped, draped, prepared for transurethral procedure. Prior to prep the patient received a BNO suppository. After prepping, draping and ensuring an adequate level of anesthesia the laser resectoscope was passed through the urethra prostate into the bladder under direct vision. Anatomy was checked and again the position of the right ureteral orifice was noted to be close to the edge of the median lobe. Laser fiber was inserted and using the laser the level of the verumontanum was marked on the floor and lateral lobes of the prostate. Then going into the sulci lateral to the median lobe right and left flow channels were created with the laser. The laser was then used to deepen these down to the surgical capsule. The median lobe was then undermined sequentially right then left and with this technique enucleated and then attention was turned to vaporizing the median lobe. This was taken down to where there was but a small fragment left. This was amputated at the level of the bladder neck with the laser. Again it was noted in the proximity and closeness of the resection to the right ureteral orifice and I determined at that time that a stent would need to be placed as a precaution. The lateral lobes were then vaporized opening the channel. There were vaporized from the bladder neck to the level of the verumontanum. And with this maneuver the channel was widely patent. The bladder was left full the scope was removed and a vigorous stream was noted. The laser resectoscope was removed after the laser was placed on standby. The cystoscope was then inserted under direct vision. A grasping forceps was then inserted and the fragment of prostate tissue that had been enucleated and vaporized was removed. The scope was then once again inserted and the stent passed up and into the right collecting system. Stent was then passed over the wire and position under direct vision in the bladder a. The wire was then removed and a good curl was observed within the bladder. Clear efflux was noted from the stent at that time. The nylon harness was removed and the stent was left in good position. The bladder was left full and the scope removed again a vigorous stream was noted a 24 Citizen [place] hematuria catheter with 30 cc balloon was passed to the urethra and into the bladder. The balloon was filled with 30 cc of sterile water in the catheter placed to gravity drainage. The patient was then awakened and taken to the postanesthesia care unit having tolerated the procedure well the patient will follow up my office tomorrow morning for Schwab catheter removal and then in approximately 10 days for likely stent removal at a minimum cystoscopy to check healing. There were no complications and the patient tolerated the procedure well Complications: none Post-operative Condition: stable Disposition: PACU Plan for aftercare: Patient follow-up my office tomorrow morning for catheter removal.
[2022-02-26] MEDS: fentaNYL 100 MCG/2 ML INJ IV (10:20)
--- NOTE | 2022-02-26 10:59 | SUR.OPER ---
Green Light Laser settings, see rep record in patients chart. Also noted below. Laser on at 0818, laser off at 0920, Power 180 W, Total energy 300,010 J, total time 38min 18sec.
[2022-02-26] MEDS: OXYCODONE/ACETAMINOPHEN 5/325 TABLET 1 TAB PO ×2 (11:01→12:36)
[2022-02-26] MEDS: OXYBUTYNIN 5 MG TABLET PO (11:20)
[2022-02-26] MEDS: ONDANSETRON 4 MG/2 ML INJ IV ×2 (11:52→13:36)
[2022-02-26] MEDS: LACTATED RINGERS 1,000 ML 120 ML IV (11:52)
[2022-02-26] MEDS: PHENAZOPYRIDINE 100 MG TABLET 200 MG PO (12:39)
--- NOTE | 2022-02-26 13:27 | SUR.PHASEII ---
Patient had a large yellow emesis on the bathroom floor (approx 3' radius) following diarrhea. was with him as he was preparing to go home. Patient states that the nausea is resolved. Patient back to the stretcher. Dr Hamilton called and informed. He would like us to manage the nausea in conjunction with anesthesia, slow down on PO fluid intake, and avoid percocet to see if this resolves the issue.
--- NOTE | 2022-02-26 13:52 | SUR.PHASEII ---
is at the bedside, patient calm, urine is dark red, but not thick, drains easily in the tubing. Patient aware that we are biding time, allowing nausea to subside, and discuss with anesthesia
--- NOTE | 2022-02-26 13:56 | SUR.PHASEII ---
1152 late entry patient had approx 150 ml emesis after fluids and medication. IV had been DC'd in prep for discharge. IV restarted and medication given.
[2022-02-26] MEDS: DEXAMETHASONE 10 MG/ML VIAL 8 MG IV (14:24)
[2022-02-26] MEDS: METOCLOPRAMIDE 10 MG/2 ML INJ IV (15:35)
== END 2022-02-26 16:04 | disposition home or self-care (01) ==
PROVIDERS: PCP Family Medicine; Referring Provider Urology; Visit Provider Urology
PROC: (CPT 52648; principal; 2022-02-26 07:45)
DX: N40.1 Benign prostatic hyperplasia with lower urinary tract symptoms (principal); N32.0 Bladder-neck obstruction; R35.1 Nocturia
CPT/HCPCS: 52649; 52332; 00914; J0690; J1100; J2250; J2405; J2704; J2765; J3010

== ENCOUNTER 2022-03-01 23:21 | Emergency (ER) | payer MEDICARE, BC, SELFPAY ==
[2022-03-01 23:28] VITALS: BP 135/65; PULSE 61; RESP 20; TEMP 37.4; O2SAT 95; BMI 24.3
[2022-03-02] VITALS (11 sets, daily range): BP systolic 121–134; BP diastolic 61–69; PULSE 60–66; O2SAT 90–100
--- NOTE | 2022-03-02 00:04 | DI.CT.S_ITS ---
PROCEDURE: CT ABDOMEN PELVIS W CON INDICATIONS: urinary retention, constipation, vomiting s/p prostate/stent TECHNIQUE: After the administration of IV contrast, axial sections were acquired from the lung bases to the pubic symphysis. Coronal and sagittal reformats were performed. For radiation dose reduction, the following was used: automated exposure control, adjustment of mA and/or kV according to patient size. COMPARISON: [facility], CT, CT ABDOMEN PELVIS W CON, 08/29/2021, 16:09. FINDINGS: Image quality: Excellent. Lung bases: There is mild dependent atelectasis and scarring. Heart: Heart is normal in size. There is a small hiatal hernia. ABDOMEN: Liver: There is hypoattenuation of the liver consistent with fatty infiltration. The Gallbladder: Within normal limits without calcified gallstones. Biliary ducts: No biliary ductal dilatation. Pancreas: Unremarkable. Spleen: Normal in size. Adrenal Glands: No adrenal nodules. Kidneys and Ureters: There is a ureteral stent in the right renal collecting system with the proximal coil in the renal pelvis and the distal coil in the bladder. No right hydronephrosis. There is mild dilatation of the left renal collecting system. No discrete obstructing stone or mass visualized. A suspected punctate nonobstructing stone is noted in the left kidney. There is new bilateral perinephric fat stranding and fluid. Stomach and Bowel: Stomach, small bowel loops, and colon are normal in caliber and wall thickness. Peritoneum: No abnormal intraperitoneal fluid. No free air. Ventral Wall: No hernia. Abdominal Nodes: No retroperitoneal or mesenteric adenopathy by size criteria. Vessels: Aorta and inferior vena cava are normal in size. PELVIS: Pelvic Organs: There is moderate enlargement of the prostate. Bladder: There is a Schwab catheter within a nondistended urinary bladder. There is suggestion of mild bladder wall thickening. Pelvic Nodes: No enlarged lymph nodes. Miscellaneous: There is a small fat-containing left inguinal hernia. Bones: Visualized osseous structures demonstrate no suspicious focal lesions. IMPRESSION: 1. Interval placement of a right ureteral stent. No right hydronephrosis. There is minimal left hydronephrosis. 2. New bilateral perinephric stranding and fluid. The findings are nonspecific but may reflect pyelonephritis. Recommend correlation clinically. 3. Schwab catheter within a nondistended urinary bladder. There is suggestion of mild bladder wall thickening which may reflect a cystitis. Recommend correlation with urinalysis. Dictated by: Steven Landa M.D. on 03/02/2022 at 1:49 Approved by: Steven Landa M.D. on 03/02/2022 at 1:57
--- NOTE | 2022-03-02 00:05 | ED_ITS ---
HPI - Male Genitourinary General Chief complaint: Urogenital-Male Stated complaint: abdominal pain Time Seen by Provider: 03/01/22 23:54 Source: EMS Mode of arrival: EMS History of Present Illness HPI Narrative: This is an 82-year-old male with history atrial fibrillation and pacemaker on aspirin daily, acoustic neuroma, hypertension and bladder outlet obstruction with recent laser enucleation of his prostate with right stent placement. Patient states procedure was on 02/26. He states the following day he had his urinary catheter removed he retained about 200 mL and then since then has dribbling or very small low flow stream and became unable urinate with increasing abdominal pain and distention. Has not had any known fevers at home but has felt significantly unwell he is had significant decrease in his appetite he is had nausea and vomiting intermittently every other day or so. Has not had a bowel movement since the . He has been passing gas. He is tried Maalox with Gatorade and a suppository for his constipation. He does have a pacemaker in place which he states is not MRI compatible, need prior knee surgery remotely and his recent urologic procedure on the with Dr. Hamilton. Patient lives on [facility] and was flown over this evening because of his increasing abdominal pain, distention inability to urinate and persistent vomiting without any stool. Patient had urinary catheter placed by nursing and states his pain is significantly improving as his bladder drains. Related Data Home Medications Medication Instructions Recorded Confirmed aspirin 81 mg tablet,delayed 81 mg PO QDAY ##0 01/22/17 02/26/22 release ferrous sulfate 325 mg (65 mg 325 mg PO QDAY ##0 01/22/17 02/26/22 iron) tablet (Iron (ferrous sulfate)) omega 0-ued-lqu-fish oil 1,000 mg 1,000 mg PO DAILY ##0 02/28/17 02/26/22 (120 mg-180 mg) capsule (Fish Oil) metoprolol succinate 25 mg 12.5 mg PO DAILY 07/10/21 02/26/22 tablet,extended release 24 hr Previous Rx's Medication Instructions Recorded cyclobenzaprine 10 mg tablet 10 mg PO TID PRN muscle spasm #10 10/08/19 tabs methylprednisolone 4 mg tablets in 4 mg PO DAILY #21 ea 12/29/21 a dose pack (Medrol (Alec)) omeprazole 20 mg capsule,delayed 20 mg PO QAM #90 caps 01/12/22 release oxybutynin chloride 5 mg tablet 5 mg PO BID-TID PRN bladder spasms 02/26/22 #30 tabs oxybutynin chloride 5 mg tablet 5 mg PO BID-TID PRN bladder spasms 02/26/22 #30 tabs phenazopyridine 200 mg tablet 200 mg PO TID PRN Bladder 02/26/22 (Pyridium) irritation #30 tabs phenazopyridine 200 mg tablet 200 mg PO TID PRN pain 6 doses #30 02/26/22 (Pyridium) tabs prochlorperazine 25 mg rectal 25 mg ND BID PRN nausea and 02/27/22 suppository (Compazine) vomiting #12 ea ciprofloxacin HCl 500 mg tablet 500 mg PO Q12H #20 tabs 03/02/22 Allergies Allergy/AdvReac Type Severity Reaction Status Date / Time bee venom protein (honey bee) Allergy Severe Anaphylaxis Verified 02/26/22 09:52 Review of Systems Review of Systems ROS Unobtainable: All systems reviewed & are unremarkable except as noted in HPI and below Patient History Medical History (Updated 03/06/22 @ 10:03 by Crispin Morris DO) 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) Allergies Constipation Gastroesophageal reflux disease GERD (gastroesophageal reflux disease) 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 HEENT: Head normocephalic, atraumatic, EOMI, pupils reactive, face symmetric, mo ist mucous membranes NECK: Supple, full range of motion CARDIOVASCULAR: Regular rate and rhythm without murmurs, rubs or gallops. RESPIRATORY: Breath sounds equal bilaterally, no wheezes rales or rhonchi. ABDOMEN: Soft, tender. Distended. Normoactive bowel sounds all 4 quadrants. No guarding or rebound, rigidity, no mass : No CVA tenderness. Schwab catheter placed by nursing and draining brownish urine. EXTREMITIES: Normal range of motion, no clubbing or edema. Neurovascularly intact NEUROLOGICAL: Cranial nerves II through XII grossly intact. Moving all extremities SKIN: Warm, dry, no petechiae, no rashes or lesions. Initial Vital Signs Initial Vital Signs: Vital Signs Temperature 99.3 F 03/01/22 23:28 Pulse Rate 61 03/01/22 23:28 Respiratory Rate 20 03/01/22 23:28 Blood Pressure 135/65 03/01/22 23:28 Pulse Oximetry 95 03/01/22 23:28 Oxygen Delivery Method 03/01/22 23:28 Course Orders Ordered: Discontinued Medications Sodium Chloride (Normal Saline 0.9%) 1,000 mls @ 1,000 mls/hr IV BOLUS ONE Stop: 03/02/22 01:03 Last Infusion: 03/02/22 01:20 Dose: 0 mls/hr Documented By: Admin: 03/02/22 00:13 Dose: 1,000 mls/hr Documented By: EB Ceftriaxone Sodium 2,000 mg/ (Sodium Chloride) 100 mls @ 200 mls/hr IV NOW ONE Stop: 03/02/22 02:09 Last Infusion: 03/02/22 03:06 Dose: 0 mls/hr Documented By: Admin: 03/02/22 02:30 Dose: 200 mls/hr Documented By: EB Sodium Chloride (Normal Saline 0.9%) 1,000 mls @ 150 mls/hr IV CONT GENESIS Last Infusion: 03/02/22 09:57 Dose: 0 mls/hr Documented By: Admin: 03/02/22 02:30 Dose: 150 mls/hr Documented By: EB Lidocaine HCl (Lidocaine 2% (Glydo) 6 Ml Gel) 6 ml TOP NOW ONE Stop: 03/01/22 23:33 Last Admin: 03/02/22 00:20 Dose: 6 ml Documented By: EB Magnesium Citrate (Magnesium Citrate 300 Ml Solution) 300 ml PO NOW ONE Stop: 03/02/22 05:55 Last Admin: 03/02/22 08:46 Dose: 300 ml Documented By: DONG Ondansetron HCl (Ondansetron 4 Mg/2 Ml Inj) 4 mg IV NOW ONE Stop: 03/02/22 00:05 Last Admin: 03/02/22 00:13 Dose: 4 mg Documented By: EB Reevaluation(s) Reevaluation #1: patient has been sleeping comfortably through the night. We can easily verbal stimuli. Message was left with patient's updating her on plan for discharge. She was plan to catch the 1st ferry from the [facility] today. Vital Signs Vital signs: Vital Signs - 8 hr 03/01/22 23:28 03/02/22 00:02 03/02/22 00:30 Temperature 99.3 F Pulse Rate 61 60 62 Respiratory Rate 20 Blood Pressure 135/65 Pulse Oximetry 95 90 L 91 Oxygen Delivery Method Room Air Oxygen Flow Rate 03/02/22 02:11 03/02/22 02:11 03/02/22 02:30 Temperature Pulse Rate 60 66 Respiratory Rate Blood Pressure 134/69 Pulse Oximetry 95 99 Oxygen Delivery Method Nasal Cannula Oxygen Flow Rate 2 03/02/22 03:00 03/02/22 03:00 Temperature Pulse Rate 64 Respiratory Rate Blood Pressure 121/65 Pulse Oximetry 95 Oxygen Delivery Method Nasal Cannula Oxygen Flow Rate 2 MDM - Male Genitourinary Lab Data Result diagrams: 03/02/22 05:08 03/02/22 05:08 Labs: Lab Results 03/01/22 03/02/22 03/02/22 Range/Units 23:45 00:15 00:15 WBC 9.1 (4.5-11.0) X10^3/uL RBC 3.77 L (4.5-5.9) X10^6/uL Hgb 11.9 L (13.5-17.5) g/dL Hct 35.8 L (41-53) % MCV 94.9 (80-100) fL MCH 31.6 (26-34) PG MCHC 33.3 (30-36) % RDW 13.4 (11.6-14.8) % Plt Count 177 (150-400) X10^3/uL Neut % (Auto) 78.3 H (50-75) % Lymph % (Auto) 9.8 L (25-40) % Stearns % (Auto) 11.4 (3-14) % Eos % (Auto) 0.3 L (2-4) % Baso % (Auto) 0.2 (0-2) % Neut # (Auto) 7100 H (4355-2688) /uL Lymph # (Auto) 900 L (1447-7792) /uL Stearns # (Auto) 1000 H (0-900) /uL Eos # (Auto) 0 (0-450) /uL Baso # (Auto) 0 (0-100) /uL Sodium 132 L (137-145) mmol/L Potassium 3.8 (3.4-5.1) mmol/L Chloride 101 (98-107) mmol/L Carbon Dioxide 23 (22-32) mmol/L BUN 34 H (9-20) mg/dL Creatinine 1.54 H (0.66-1.25) mg/dL Estimated GFR 44 L (>60) mL/min BUN/Creatinine Ratio 22.1 H (6-22) Glucose 127 H (80-110) mg/dL Calcium 9.8 (8.4-10.2) mg/dL Total Bilirubin 1.2 (0.2-1.3) mg/dL AST 27 (17-59) IU/L ALT 19 (<50) IU/L Alkaline Phosphatase 48 (38-126) U/L Total Protein 6.7 (6.3-8.2) g/dL Albumin 3.7 (3.5-5.0) g/dL Globulin 3.0 (1.7-4.1) g/dL Albumin/Globulin Ratio 1.2 (1.0-2.8) Lipase 38 (23-300) U/L Urine Color Pyridium orange Urine Appearance Slightly cloudy Urine pH 5 (4.5-8.0) Ur Specific [place] 1.015 (1.000-1.035) Urine Protein Not Reportable Urine Glucose (UA) 1+ H (Negative) g/dL Urine Ketones Negative (NEGATIVE) Urine Occult Blood 3+ H (Negative) Urine Nitrate Not Reportable Urine Bilirubin Negative (NEGATIVE) Urine Urobilinogen Not Reportable Ur Leukocyte Esterase Not Reportable Urine RBC >100/hpf H (0-5/HPF) Urine WBC 5-10/hpf H (0-5/HPF) Urine Bacteria None seen (None) Ur Culture Indicated? Specimen cultured Micro UA Comment * 03/02/22 03/02/22 Range/Units 05:08 05:08 WBC 7.9 (4.5-11.0) X10^3/uL RBC 3.65 L (4.5-5.9) X10^6/uL Hgb 11.8 L (13.5-17.5) g/dL Hct 34.5 L (41-53) % MCV 94.3 (80-100) fL MCH 32.2 (26-34) PG MCHC 34.2 (30-36) % RDW 13.6 (11.6-14.8) % Plt Count 166 (150-400) X10^3/uL Neut % (Auto) 67.8 (50-75) % Lymph % (Auto) 19.1 L (25-40) % Stearns % (Auto) 11.9 (3-14) % Eos % (Auto) 0.9 L (2-4) % Baso % (Auto) 0.3 (0-2) % Neut # (Auto) 5300 (0342-1227) /uL Lymph # (Auto) 1500 (1990-5204) /uL Stearns # (Auto) 900 (0-900) /uL Eos # (Auto) 100 (0-450) /uL Baso # (Auto) 0 (0-100) /uL Sodium 137 (137-145) mmol/L Potassium 3.8 (3.4-5.1) mmol/L Chloride 106 (98-107) mmol/L Carbon Dioxide 24 (22-32) mmol/L BUN 28 H (9-20) mg/dL Creatinine 1.20 (0.66-1.25) mg/dL Estimated GFR > 60 (>60) mL/min BUN/Creatinine Ratio 23.3 H (6-22) Glucose 107 (80-110) mg/dL Calcium 9.0 (8.4-10.2) mg/dL Total Bilirubin (0.2-1.3) mg/dL AST (17-59) IU/L ALT (<50) IU/L Alkaline Phosphatase (38-126) U/L Total Protein (6.3-8.2) g/dL Albumin (3.5-5.0) g/dL Globulin (1.7-4.1) g/dL Albumin/Globulin Ratio (1.0-2.8) Lipase (23-300) U/L Urine Color Urine Appearance Urine pH (4.5-8.0) Ur Specific [place] (1.000-1.035) Urine Protein Urine Glucose (UA) (Negative) g/dL Urine Ketones (NEGATIVE) Urine Occult Blood (Negative) Urine Nitrate Urine Bilirubin (NEGATIVE) Urine Urobilinogen Ur Leukocyte Esterase Urine RBC (0-5/HPF) Urine WBC (0-5/HPF) Urine Bacteria (None) Ur Culture Indicated? Micro UA Comment Imaging Data CT scan - abdomen/pelvis: Radiologist's Impression: Close Abdomen/Pelvis CT (Signed) Steven Landa - 03/02/22 Launch?Image [address] [address] [address] Scan Report Signed Patient: Jeramy Riley MR#: [id number] : 1940 Acct:[id number] Age/Sex: 82 / M Date of Service: 03/02/22 Loc: ED Accession Number: [id number] ?? Procedure: CT abdomen pelvis w con Ordering Provider: Christine Jean Baptiste D.O. PROCEDURE:? CT ABDOMEN PELVIS W CON ? INDICATIONS:? urinary retention, constipation, vomiting s/p prostate/stent ? TECHNIQUE:? After the administration of IV contrast, axial sections were acquired from the lung bases to the pubic symphysis.? Coronal and sagittal reformats were performed.? For radiation dose reduction, the following was used:? automated exposure control, adjustment of mA and/or kV according to patient size. ? COMPARISON:? [facility], CT, CT ABDOMEN PELVIS W CON, 08/29/2021, 16:09. ? FINDINGS:? Image quality:? Excellent.? ? Lung bases:? There is mild dependent atelectasis and scarring.? ? Heart:? Heart is normal in size.? There is a small hiatal hernia. ? ? ABDOMEN: Liver:? There is hypoattenuation of the liver consistent with fatty infiltration.? The Gallbladder:? Within normal limits without calcified gallstones.? ? Biliary ducts:? No biliary ductal dilatation.? ? Pancreas:? Unremarkable.? ? Spleen:? Normal in size.? ? Adrenal Glands:? No adrenal nodules.? ? Kidneys and Ureters:? There is a ureteral stent in the right renal collecting system with the proximal coil in the renal pelvis and the distal coil in the bladder.? No right hydronephrosis.? There is mild dilatation of the left renal collecting system.? No discrete obstructing stone or mass visualized.? A suspected punctate nonobstructing stone is noted in the left kidney.? There is new bilateral perinephric fat stranding and fluid. ? ? Stomach and Bowel:? Stomach, small bowel loops, and colon are normal in caliber and wall thickness.? Peritoneum:? No abnormal intraperitoneal fluid.? No free air.? ? Ventral Wall: ? No hernia.? Abdominal Nodes:? No retroperitoneal or mesenteric adenopathy by size criteria.? Vessels:? Aorta and inferior vena cava are normal in size.? ? PELVIS: Pelvic Organs:? There is moderate enlargement of the prostate.? ? Bladder:? There is a Schwab catheter within a nondistended urinary bladder.? There is suggestion of mild bladder wall thickening.? ? Pelvic Nodes: No enlarged lymph nodes.? Miscellaneous:? There is a small fat-containing left inguinal hernia. ? Bones:? Visualized osseous structures demonstrate no suspicious focal lesions. ? IMPRESSION:? ? 1. Interval placement of a right ureteral stent.? No right hydronephrosis.? There is minimal left hydronephrosis. ? 2. New bilateral perinephric stranding and fluid.? The findings are nonspecific but may reflect pyelonephritis.? Recommend correlation clinically. ? 3. Schwab catheter within a nondistended urinary bladder.? There is suggestion of mild bladder wall thickening which may reflect a cystitis.? Recommend correlation with urinalysis.? ? ? Dictated by: Steven Landa M.D. on 03/02/2022 at 1:49 ? ? Approved by: Steven Landa M.D. on 03/02/2022 at 1:57 MDM Narrative Medical decision making narrative: This is an 82-year-old male postprocedure for BPH who had a urinary stent placed and developed urinary retention in the short term, patient appears to be also developing a possible infection in his urine he does have a stent still in place. Patient was given dose of IV Rocephin, renal function was elevated but likely obstructive and patient was given fluids, urine catheter was placed and patient immediately drained significant amount of brownish urine which has since cleared to a yellow and renal function has significantly improved on recheck. Patient does not have other electrolyte abnormalities. Hemoglobin is stable with recheck. Plan for discharge home with Schwab catheter in place, oral antibiotics and follow up with his Urology team. Prescription for UTI/pyelonephritis was sent, patient does not have flank pain but does have stranding on CT. This could be related to recent surgery but patient covered. Patient was resting comfortably throughout the night. Discharge Plan Departure Patient Disposition: Home Clinical Impression: Acute urinary retention, UTI (urinary tract infection), JIMMIE (acute kidney injury) Instructions: DI for Urinary Tract Infection (UTI) Activity Restrictions/Additional Instructions: Your labs showed increase in her creatinine but this has improved after fluids and is likely secondary to urinary retention. Keep Schwab catheter in place until cleared by Urology. Constipation can worsen or cause urinary retention as well and you appear to be quite constipated. I would recommend taking Colace 1-2 times daily until stooling regularly it is also important that you drink plenty of fluids. You may take Mag citrate, drink 1/2 bottle wait 4-5 hours and if no bowel movement you may drink the 2nd half of the bottle. Your labs and urine sample today are concerning for possible infection. Please take antibiotics until completely gone Prescription sent to [facility] in [place]. Please return for fevers, worsening abdominal, back or flank pain, persistent vomiting, your catheter is not draining urine or other new or concerning symptoms. Prescriptions: New ciprofloxacin HCl 500 mg tablet 500 mg PO Q12H Qty: 20 0RF No Action aspirin 81 MG tablet,delayed release (DR/EC) 81 mg PO QDAY Qty: 0 ferrous sulfate [Iron (ferrous sulfate)] 325 MG tablet 325 mg PO QDAY Qty: 0 omega 1-agz-jwf-fish oil [Fish Oil] 1,000 MG capsule 1,000 mg PO DAILY Qty: 0 metoprolol succinate 25 mg tablet extended release 24 hr 12.5 mg PO DAILY omeprazole 20 mg capsule,delayed release(DR/EC) 20 mg PO QAM Qty: 90 3RF cyclobenzaprine 10 mg tablet 10 mg PO TID PRN (Reason: muscle spasm) Qty: 10 0RF Label Comments: No longer taking phenazopyridine [Pyridium] 200 mg tablet 200 mg PO TID PRN (Reason: pain) Qty: 30 0RF oxybutynin chloride 5 mg tablet 5 mg PO BID-TID PRN (Reason: bladder spasms) Qty: 30 0RF phenazopyridine [Pyridium] 200 mg tablet 200 mg PO TID PRN (Reason: Bladder irritation) Qty: 30 0RF oxybutynin chloride 5 mg tablet 5 mg PO BID-TID PRN (Reason: bladder spasms) Qty: 30 0RF methylprednisolone [Medrol (Alec)] 4 mg tablets,dose pack 4 mg PO DAILY Qty: 21 0RF prochlorperazine [Compazine] 25 mg suppository 25 mg ND BID PRN (Reason: nausea and vomiting) Qty: 12 0RF Referrals: Crispin Morris DO [Primary Care Provider] - Joshua Hamilton MD [Physician] - Visit Report Forms: Patient Portal/API
[2022-03-02] MEDS: SODIUM CHLORIDE 0.9% 1,000 ML 1000 ML IV (00:13)
[2022-03-02] MEDS: ONDANSETRON 4 MG/2 ML INJ IV (00:13)
[2022-03-02] MEDS: LIDOCAINE 2% (GLYDO) 6 ML GEL TOP (00:20)
[2022-03-02 00:22] LABS: Glucose Urine UA 1+ g/dL (Negative); Specific Gravity Urine UA 1.015 (1.000-1.035); pH Urine UA 5 (4.5-8.0)
[2022-03-02 00:23] LABS: Bilirubin Urine UA Negative (NEGATIVE); Ketones Urine UA NEGATIVE (NEGATIVE); Occult Blood Urine UA 3+ (Negative)
[2022-03-02 00:28] LABS: Appearance Urine UA Slightly Cloudy; Bacteria Urine None Seen; Culture Indicated Urine Specimen Cultured; RBC Urine >100/HPF (0-5/HPF); WBC Urine 5-10/HPF (0-5/HPF)
[2022-03-02 00:44] LABS: Add Manual Diff / Slide Review NO; Basophils Absolute Auto 0 /uL (0-100); Basophils Percent Auto 0.2 % (0-2); Eosinophils Absolute Auto 0 /uL (0-450); Eosinophils Percent Auto 0.3 % (2-4); Hematocrit 35.8 % (41-53); Hemoglobin 11.9 g/dL (13.5-17.5); Lymphocytes Absolute Auto 900 /uL (1100-4500); Lymphocytes Percent Auto 9.8 % (25-40); Mean Corpuscular HGB Conc 33.3 % (30-36); Mean Corpuscular Hemoglobin 31.6 PG (26-34); Mean Corpuscular Volume 94.9 fL (80-100); Monocytes Absolute Auto 1000 /uL (0-900); Monocytes Percent Auto 11.4 % (3-14); Neutrophils Absolute Auto 7100 /uL (1500-7000); Neutrophils Percent Auto 78.3 % (50-75); Platelet Count 177 X10^3/uL (150-400); Red Blood Cell Count 3.77 X10^6/uL (4.5-5.9); Red Cell Distribution Width 13.4 % (11.6-14.8); White Blood Cell Count 9.1 X10^3/uL (4.5-11.0)
[2022-03-02 00:50] LABS: Alanine Aminotransferase 19 IU/L (<50); Albumin 3.7 g/dL (3.5-5.0); Albumin Globulin Ratio 1.2 (1.0-2.8); Alkaline Phosphatase 48 U/L (38-126); Aspartate Aminotransferase 27 IU/L (17-59); BUN Creatinine Ratio 22.1 (6-22); Bilirubin Total 1.2 mg/dL (0.2-1.3); Blood Urea Nitrogen 34 mg/dL (9-20); Calcium 9.8 mg/dL (8.4-10.2); Carbon Dioxide 23 mmol/L (22-32); Chloride 101 mmol/L (98-107); Estimated Glomerular Filt Rate 44 mL/min (>60); Glucose 127 mg/dL (80-110); HEMOLYSIS 21 (0-50); Lipase 38 U/L (23-300); Potassium 3.8 mmol/L (3.4-5.1); Sodium 132 mmol/L (137-145); Total Protein 6.7 g/dL (6.3-8.2)
[2022-03-02] MEDS: cefTRIAXone 2,000 MG in SODIUM CHLORIDE 0.9% 100 ML 200 MG IV (02:30)
[2022-03-02] MEDS: SODIUM CHLORIDE 0.9% 1,000 ML 150 ML IV (02:30)
--- NOTE | 2022-03-02 03:06 | PC.NURSE ---
Pt sleeping mostly, but arouses to verbal stimulation and reports continued moderate pain in his abdomen. Provider aware.
--- NOTE | 2022-03-02 03:07 | PC.NURSE ---
While pt sleeping, he has periods of desaturation. Oxygen applied and provider notified of this.
[2022-03-02 05:24] LABS: Add Manual Diff / Slide Review NO; Basophils Absolute Auto 0 /uL (0-100); Basophils Percent Auto 0.3 % (0-2); Eosinophils Absolute Auto 100 /uL (0-450); Eosinophils Percent Auto 0.9 % (2-4); Hematocrit 34.5 % (41-53); Hemoglobin 11.8 g/dL (13.5-17.5); Lymphocytes Absolute Auto 1500 /uL (1100-4500); Lymphocytes Percent Auto 19.1 % (25-40); Mean Corpuscular HGB Conc 34.2 % (30-36); Mean Corpuscular Hemoglobin 32.2 PG (26-34); Mean Corpuscular Volume 94.3 fL (80-100); Monocytes Absolute Auto 900 /uL (0-900); Monocytes Percent Auto 11.9 % (3-14); Neutrophils Absolute Auto 5300 /uL (1500-7000); Neutrophils Percent Auto 67.8 % (50-75); Platelet Count 166 X10^3/uL (150-400); Red Blood Cell Count 3.65 X10^6/uL (4.5-5.9); Red Cell Distribution Width 13.6 % (11.6-14.8); White Blood Cell Count 7.9 X10^3/uL (4.5-11.0)
[2022-03-02 05:29] LABS: BUN Creatinine Ratio 23.3 (6-22); Blood Urea Nitrogen 28 mg/dL (9-20); Carbon Dioxide 24 mmol/L (22-32); Chloride 106 mmol/L (98-107); Estimated Glomerular Filt Rate > 60 mL/min (>60); Glucose 107 mg/dL (80-110); HEMOLYSIS 17 (0-50); Potassium 3.8 mmol/L (3.4-5.1); Sodium 137 mmol/L (137-145)
[2022-03-02] MEDS: MAGNESIUM CITRATE 300 ML SOLUTION PO (08:46)
== END 2022-03-02 09:58 | disposition home or self-care (01) ==
PROVIDERS: Emergency Provider Emergency Medicine; PCP Family Medicine
DX: R33.8 Other retention of urine (principal); N39.0 Urinary tract infection, site not specified; N17.9 Acute kidney failure, unspecified; Z95.0 Presence of cardiac pacemaker
CPT/HCPCS: 36415; 74177; 80048; 80053; 81001; 83690; 85025; 87086; 96361; 96365; 96375; 99284; 99285; J0696; J2405

== ENCOUNTER → 2022-03-14 12:43 | Outpatient (CLI) | payer MEDICARE, BC, SELFPAY | PROVIDERS: PCP Family Medicine; Visit Provider Urology | DX: N40.1 Benign prostatic hyperplasia with lower urinary tract symptoms (principal); R30.0 Dysuria; N32.0 Bladder-neck obstruction; R33.8 Other retention of urine | CPT/HCPCS: 51798; 52310; 81002; 87086 ==

== ENCOUNTER → 2022-03-22 09:28 | Outpatient (CLI) | payer MEDICARE, BC, SELFPAY ==
[2022-03-22 20:02] LABS: Appearance Urine UA CLEAR; Bilirubin Urine UA NEGATIVE (NEGATIVE); Color Urine UA YELLOW; Glucose Urine UA NEGATIVE (Negative); Ketones Urine UA NEGATIVE (NEGATIVE); Leukocyte Esterase Urine UA 2+ (NEGATIVE); Nitrite Urine UA NEGATIVE (Negative); Occult Blood Urine UA 3+ (Negative); Protein Urine UA 2+ (Negative); Urobilinogen Urine UA 0.2 E.U./dL (0.2)
[2022-03-22 20:48] LABS: Bacteria Urine Many (>30); Calcium Oxalate Crystals Urine Few; Culture Indicated Urine Specimen Cultured; RBC Urine 30-100/HPF (0-5/HPF); Renal Epithelial Cells Urine 0-1/HPF (0-1/HPF); WBC Urine 30-100/HPF (0-5/HPF)
== END ==
PROVIDERS: PCP Family Medicine; Visit Provider Urology
DX: R30.9 Painful micturition, unspecified (principal)
CPT/HCPCS: 81001; 87077; 87086

== ENCOUNTER → 2022-03-27 12:16 | Outpatient (CLI) | payer MEDICARE, BC, SELFPAY | PROVIDERS: PCP Family Medicine; Visit Provider Urology | DX: N40.1 Benign prostatic hyperplasia with lower urinary tract symptoms (principal); N13.8 Other obstructive and reflux uropathy; R31.29 Other microscopic hematuria; Q63.2 Ectopic kidney; R35.1 Nocturia; B37.49 Other urogenital candidiasis; R30.0 Dysuria; R50.9 Fever, unspecified; R82.81 Pyuria | CPT/HCPCS: 51798; 81002; 87086 ==

== ENCOUNTER → 2022-03-29 10:30 | Outpatient (CLI) | payer MEDICARE, BC, SELFPAY ==
[2022-03-29 20:23] LABS: Add Manual Diff / Slide Review NO; Basophils Absolute Auto 100 /uL (0-100); Basophils Percent Auto 1.2 % (0-2); Eosinophils Absolute Auto 200 /uL (0-450); Eosinophils Percent Auto 3.9 % (2-4); Hematocrit 39.9 % (41-53); Hemoglobin 13.7 g/dL (13.5-17.5); Lymphocytes Absolute Auto 1900 /uL (1100-4500); Mean Corpuscular HGB Conc 34.3 % (30-36); Mean Corpuscular Hemoglobin 32.2 PG (26-34); Mean Corpuscular Volume 93.7 fL (80-100); Monocytes Absolute Auto 600 /uL (0-900); Neutrophils Absolute Auto 3100 /uL (1500-7000); Neutrophils Percent Auto 52.9 % (50-75); Platelet Count 297 X10^3/uL (150-400); Red Blood Cell Count 4.26 X10^6/uL (4.5-5.9); Red Cell Distribution Width 13.1 % (11.6-14.8); White Blood Cell Count 5.9 X10^3/uL (4.5-11.0)
[2022-03-29 20:27] LABS: HEMOLYSIS < 15 (0-50); Iron 142 ug/dL (49-181)
[2022-03-29 20:28] LABS: Cholesterol 184 mg/dL (140-199); HDL Cholesterol 39 mg/dL (40-60); LDL Cholesterol Calculated 101 mg/dL (<100); Magnesium 2.3 mg/dL (1.6-2.3); Triglycerides 220 mg/dL (35-150)
[2022-03-29 20:42] LABS: Percent Iron Saturation 44 % (20-50); Total Iron Binding Capacity 324 ug/dL (261-462); Transferrin 247 mg/dL (206-381)
[2022-03-29 21:01] LABS: TSH w/ Reflex to FT4 1.66 uIU/mL (0.47-4.68)
[2022-03-29 21:17] LABS: Vitamin B12 692 pg/mL (239-931)
[2022-04-02 00:06] LABS: Zinc 107 ug/dL (44-115)
== END ==
PROVIDERS: PCP Family Medicine; Visit Provider Physician Assistant
DX: I49.5 Sick sinus syndrome (principal); Z13.220 Encounter for screening for lipoid disorders; K59.01 Slow transit constipation; I44.7 Left bundle-branch block, unspecified; K21.9 Gastro-esophageal reflux disease without esophagitis; L60.3 Nail dystrophy; D64.9 Anemia, unspecified
CPT/HCPCS: 80061; 82607; 83540; 83550; 83735; 84443; 84630; 85025

== ENCOUNTER → 2022-04-04 11:56 | Outpatient (CLI) | payer MEDICARE, BC, SELFPAY ==
[2022-04-04 12:58] LABS: Appearance Urine UA SL CLOUDY; Bilirubin Urine UA NEGATIVE (NEGATIVE); Color Urine UA YELLOW; Glucose Urine UA NEGATIVE (Negative); Ketones Urine UA NEGATIVE (NEGATIVE); Leukocyte Esterase Urine UA 3+ (NEGATIVE); Nitrite Urine UA NEGATIVE (Negative); Occult Blood Urine UA 2+ (Negative); Protein Urine UA 1+ (Negative); Urobilinogen Urine UA 0.2 E.U./dL (0.2)
[2022-04-04 13:13] LABS: RBC Urine 5-10/HPF (0-5/HPF)
[2022-04-04 13:14] LABS: Bacteria Urine Few (2-10); Culture Indicated Urine Specimen Cultured; Squamous Epithelial Cell Urine 0-1 /HPF (0-5/HPF); WBC Urine 30-100/HPF (0-5/HPF)
== END ==
PROVIDERS: PCP Family Medicine; Visit Provider Urology
DX: R30.0 Dysuria (principal); R30.9 Painful micturition, unspecified; B37.49 Other urogenital candidiasis; N48.1 Balanitis; N40.1 Benign prostatic hyperplasia with lower urinary tract symptoms; N13.8 Other obstructive and reflux uropathy; Z98.890 Other specified postprocedural states
CPT/HCPCS: 51798; 81001; 81002; 87086

== ENCOUNTER → 2022-04-26 07:45 | Outpatient (CLI) | payer MEDICARE, BC, SELFPAY | PROVIDERS: PCP Family Medicine; Visit Provider Physician Assistant | DX: B37.49 Other urogenital candidiasis (principal); R30.0 Dysuria; R30.9 Painful micturition, unspecified; Z98.890 Other specified postprocedural states | CPT/HCPCS: 87086 ==

== ENCOUNTER 2022-06-29 18:24 | Emergency (ER) | payer MEDICARE, BC, SELFPAY ==
[2022-06-29 18:38] VITALS: BP 141/67; PULSE 83; RESP 16; TEMP 36.4; O2SAT 99; BMI 24.7
[2022-06-29 19:22] LABS: Add Manual Diff / Slide Review NO; Basophils Absolute Auto 100 /uL (0-100); Basophils Percent Auto 2.3 % (0-2); Eosinophils Absolute Auto 200 /uL (0-450); Eosinophils Percent Auto 3.6 % (2-4); Hematocrit 41.4 % (41-53); Hemoglobin 14.3 g/dL (13.5-17.5); Lymphocytes Absolute Auto 1400 /uL (1100-4500); Lymphocytes Percent Auto 23.7 % (25-40); Mean Corpuscular HGB Conc 34.4 % (30-36); Mean Corpuscular Hemoglobin 32.3 PG (26-34); Mean Corpuscular Volume 93.7 fL (80-100); Monocytes Absolute Auto 500 /uL (0-900); Monocytes Percent Auto 9.2 % (3-14); Neutrophils Absolute Auto 3500 /uL (1500-7000); Neutrophils Percent Auto 61.2 % (50-75); Platelet Count 221 X10^3/uL (150-400); Red Blood Cell Count 4.42 X10^6/uL (4.5-5.9); Red Cell Distribution Width 13.1 % (11.6-14.8); White Blood Cell Count 5.8 X10^3/uL (4.5-11.0)
[2022-06-29 19:33] LABS: Alanine Aminotransferase 24 IU/L (<50); Albumin 4.3 g/dL (3.5-5.0); Albumin Globulin Ratio 1.2 (1.0-2.8); Alkaline Phosphatase 67 U/L (38-126); Aspartate Aminotransferase 24 IU/L (17-59); Bilirubin Total 0.3 mg/dL (0.2-1.3); Blood Urea Nitrogen 24 mg/dL (9-20); Carbon Dioxide 28 mmol/L (22-32); Chloride 102 mmol/L (98-107); Estimated Glomerular Filt Rate > 60 mL/min (>60); Globulin 3.5 g/dL (1.7-4.1); Glucose 120 mg/dL (80-110); HEMOLYSIS < 15 (0-50); Lipase 221 U/L (23-300); Potassium 4.3 mmol/L (3.4-5.1); Sodium 138 mmol/L (137-145); Total Protein 7.8 g/dL (6.3-8.2)
--- NOTE | 2022-06-29 20:16 | DI.CT.S_ITS ---
PROCEDURE: CT ANGIO CHEST ABDOMEN PELVIS INDICATIONS: abd pain TECHNIQUE: Precontrast 5 mm thick sections acquired from the lung apices to the iliac crests. After the administration of intravenous contrast, 2.5 mm thick sections again acquired from the lung apices to the iliac crests. Maximum intensity projection (MIP) oblique sagittal and coronal reformats were then acquired. For radiation dose reduction, the following was used: automated exposure control. COMPARISON: [facility], CT, CT ABDOMEN PELVIS W CON, 03/02/2022, 1:03. FINDINGS: Image quality: Excellent. AORTA: Noncontrast images demonstrate no evidence of intramural hematoma. The aorta is normal in caliber and contour without intimal flaps to suggest dissection. There is conventional branching of the aortic arch. The visualized great vessels are normal in caliber and appear patent. The celiac, superior mesenteric, and inferior mesenteric arteries are patent. There are single renal arteries bilaterally which also appear patent. The common, external, and internal iliac arteries appear patent. The common femoral and visualized proximal superficial femoral arteries appear patent. Lung bases: Unremarkable. Heart: Heart is normal in size. CHEST: Lower Neck: No lymphadenopathy by size criteria. Thyroid: Visualized thyroid demonstrates no discrete nodules. Axillae: No lymphadenopathy by size criteria. Chest Wall: There is a right chest wall pacemaker with leads extending into the right atrium and right ventricle. Bones: Visualized osseous structures demonstrate no suspicious lesions. Lungs and Airways: No acute consolidation. There is mild dependent atelectasis. The trachea and central airways are patent. Pleura: No pneumothorax or pleural effusions. Heart: Heart size is normal. No pericardial effusion. Thoracic Vessels: The pulmonary arteries demonstrate no filling defects to suggest central pulmonary embolism. Mediastinum and Jeannie: No lymphadenopathy by size criteria. Esophagus: No wall thickening. No hiatal hernia. Lung bases: Unremarkable. Heart: Heart is normal in size. ABDOMEN: Liver: No mass lesion. Gallbladder: Within normal limits without calcified gallstones. Biliary ducts: No biliary ductal dilatation. Pancreas: Unremarkable. Spleen: Normal in size. Adrenal Glands: No adrenal nodules. Kidneys and Ureters: No hydronephrosis. There is a right renal cortical cyst. 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 Stomach and Bowel: Stomach, small bowel loops, and colon are normal in caliber and wall thickness. No pericecal inflammatory changes to suggest appendicitis. There is colonic diverticulosis without acute diverticulitis. Peritoneum: No abnormal intraperitoneal fluid. No free air. Ventral Wall: No hernia. Abdominal Nodes: No retroperitoneal or mesenteric adenopathy by size criteria. Vessels: Aorta and inferior vena cava are normal in size. PELVIS: Pelvic Organs: There is moderate enlargement of the prostate. Bladder: Unremarkable. Pelvic Nodes: No enlarged lymph nodes. Miscellaneous: There is a small fat-containing left inguinal hernia. Bones: Visualized osseous structures demonstrate no suspicious focal lesions. IMPRESSION: 1. No evidence of aortic aneurysm or dissection. 2. No evidence of central pulmonary embolism. 3. No definite acute intra-abdominal abnormality. Dictated by: Steven Landa M.D. on 06/29/2022 at 21:59 Approved by: Steven Landa M.D. on 06/29/2022 at 22:06
--- NOTE | 2022-06-29 20:17 | ED.ABDPAIN ---
HPI - Abdominal Pain General Chief Complaint: Abdominal Pain Stated Complaint: Abd pain Time Seen by Provider: 06/29/22 20:06 Source: patient Mode of arrival: Ambulatory History of Present Illness HPI narrative: Patient here with spouse. Complains of 2 weeks constant periumbilical ?pain?. It does not radiate. It is moderate pain. Nothing makes it better. However movement and palpation does make it worse Patient seen by primary care office today. Patient was off omeprazole for quite some time and did resume after the past 10 days without improvement. Patient has no known history of aortic aneurysm in the chest or abdomen. No syncope. No numbness tingling or weakness. No black or bloody stools. Did have colonoscopy by Dr. Evans in [facility] within the last month. Does have history of diverticulitis in the past year. Patient in no distress. Does not want anything for discomfort. No urinary complaints. No nausea vomiting or diarrhea. Not worse with eating Related Data Home Medications Medication Instructions Recorded Confirmed aspirin 81 mg tablet,delayed 81 mg PO QDAY ##0 01/22/17 06/29/22 release ferrous sulfate 325 mg (65 mg 325 mg PO QDAY ##0 01/22/17 06/29/22 iron) tablet (Iron (ferrous sulfate)) omega 3-xaf-mpf-fish oil 1,000 mg 1,000 mg PO DAILY ##0 02/28/17 06/29/22 (120 mg-180 mg) capsule (Fish Oil) metoprolol succinate 25 mg 12.5 mg PO DAILY 07/10/21 06/29/22 tablet,extended release 24 hr fexofenadine 180 mg tablet 180 mg PO DAILY 03/26/22 06/29/22 multivitamin 1 tab PO DAILY 03/26/22 06/29/22 omeprazole 20 mg capsule,delayed 20 mg PO 2XW 05/23/22 06/29/22 release Previous Rx's Medication Instructions Recorded betamethasone valerate 0.1 % See Rx Instructions topical DAILY 03/30/22 topical ointment #15 grams sildenafil (pulm.hypertension) 20 20 mg PO DAILY #60 tabs 05/28/22 mg tablet Allergies Allergy/AdvReac Type Severity Reaction Status Date / Time bee venom protein (honey bee) Allergy Severe Anaphylaxis Verified 05/23/22 10:32 Review of Systems Review of Systems Narrative: GENERAL: Denies chills, fatigue, malaise, fever, sweats. 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) Anemia Colon polyps Erectile dysfunction Gastroesophageal reflux disease GERD (gastroesophageal reflux disease) 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 EYES: Pupils equal round No scleral icterus. ENT: Mucous membranes moist. NECK: Trachea midline. CARDIOVASCULAR: Regular rate and rhythm without murmurs strong bilateral carotid radial and femoral pulses. RESPIRATORY: Clear to auscultation. Breath sounds equal bilaterally. No wheezes, rales, or rhonchi. GASTROINTESTINAL: Abdomen soft, mild reproducible periumbilical tenderness. Patient sat up and no palpable hernia. No peritoneal signs. No pain out of proportion to exam. Bowel sounds are present. No CVA tenderness. EXTREMITIES: No gross deformities. BACK: No flank tenderness. NEURO: AOx4. SKIN: Warm and dry PSYCH: Not anxious, is cooperative Initial Vital Signs Initial Vital Signs: Vital Signs Temperature 97.5 F L 06/29/22 18:38 Pulse Rate 83 06/29/22 18:38 Respiratory Rate 16 06/29/22 18:38 Blood Pressure 141/67 H 06/29/22 18:38 Pulse Oximetry 99 06/29/22 18:38 Oxygen Delivery Method 06/29/22 18:38 Course Course Course Narrative: No new issues during course of stay Orders Ordered: ED Orders 06/29/22 18:42 EKG-12 Lead Stat 06/29/22 19:05 Complete Blood Count AUTO DIFF Stat Comprehensive Metabolic Panel Stat Lipase Stat 06/29/22 20:16 CT angio chest abdomen pelvis Stat Discontinued Medications Sodium Chloride (Normal Saline 0.9%) 1,000 mls @ 1,000 mls/hr IV BOLUS ONE Stop: 06/29/22 21:15 Last Infusion: 06/29/22 22:36 Dose: 0 mls/hr Documented By: Admin: 06/29/22 20:53 Dose: 1,000 mls/hr Documented By: EVDA Morphine Sulfate (Morphine 4 Mg/Ml Inj) 4 mg IV NOW ONE Stop: 06/29/22 22:21 Last Admin: 06/29/22 22:35 Dose: Not Given Documented By: VEDA Morphine Sulfate (Morphine 4 Mg/Ml Inj) 4 mg IM NOW ONE Stop: 06/29/22 22:36 Last Admin: 06/29/22 22:37 Dose: 4 mg Documented By: VEDA Ondansetron HCl (Ondansetron 4 Mg/2 Ml Inj) 4 mg IV NOW ONE Stop: 06/29/22 22:21 Last Admin: 06/29/22 22:34 Dose: Not Given Documented By: VEAD Ondansetron HCl (Ondansetron 4 Mg/2 Ml Inj) 4 mg IM NOW ONE Stop: 06/29/22 22:36 Last Admin: 06/29/22 22:37 Dose: 4 mg Documented By: VEDA Reevaluation(s) Reevaluation #1: I reviewed results with patient and . This time they are reassuring. Patient does note that pain got worse after by examination palpation of the abdomen. He does wish for pain medication before he leaves. They do understand there is further worked be done and referrals. Understands will need referral to GI as well as general surgeon for possible endoscopy and further workup. Return precautions reviewed with them. Time: 22:21 Vital Signs Vital signs: Vital Signs - 8 hr 06/29/22 18:38 Temperature 97.5 F L Pulse Rate 83 Respiratory Rate 16 Blood Pressure 141/67 H Pulse Oximetry 99 Oxygen Delivery Method Room Air MDM - Abdominal Pain Differential Diagnosis Differential diagnosis: Likely abdominal pain, acute appendicitis, calculus of kidney, constipation, diverticulitis, pancreatitis, small bowel obstruction and other (Aneurysm/dissection) Lab Data Result diagrams: 06/29/22 19:05 06/29/22 19:05 Labs: Lab Results 06/29/22 06/29/22 Range/Units 19:05 19:05 WBC 5.8 (4.5-11.0) X10^3/uL RBC 4.42 L (4.5-5.9) X10^6/uL Hgb 14.3 (13.5-17.5) g/dL Hct 41.4 (41-53) % MCV 93.7 (80-100) fL MCH 32.3 (26-34) PG MCHC 34.4 (30-36) % RDW 13.1 (11.6-14.8) % Plt Count 221 (150-400) X10^3/uL Neut % (Auto) 61.2 (50-75) % Lymph % (Auto) 23.7 L (25-40) % Schuyler % (Auto) 9.2 (3-14) % Eos % (Auto) 3.6 (2-4) % Baso % (Auto) 2.3 H (0-2) % Neut # (Auto) 3500 (1199-3151) /uL Lymph # (Auto) 1400 (8234-3562) /uL Schuyler # (Auto) 500 (0-900) /uL Eos # (Auto) 200 (0-450) /uL Baso # (Auto) 100 (0-100) /uL Sodium 138 (137-145) mmol/L Potassium 4.3 (3.4-5.1) mmol/L Chloride 102 (98-107) mmol/L Carbon Dioxide 28 (22-32) mmol/L BUN 24 H (9-20) mg/dL Creatinine 1.00 (0.66-1.25) mg/dL Estimated GFR > 60 (>60) mL/min BUN/Creatinine Ratio 24.0 H (6-22) Glucose 120 H (80-110) mg/dL Calcium 10.0 (8.4-10.2) mg/dL Total Bilirubin 0.3 (0.2-1.3) mg/dL AST 24 (17-59) IU/L ALT 24 (<50) IU/L Alkaline Phosphatase 67 (38-126) U/L Total Protein 7.8 (6.3-8.2) g/dL Albumin 4.3 (3.5-5.0) g/dL Globulin 3.5 (1.7-4.1) g/dL Albumin/Globulin Ratio 1.2 (1.0-2.8) Lipase 221 (23-300) U/L Imaging Data CT chest abdomen and pelvis: Radiologist's Impression: [address] [address] [address] Scan Report Signed Patient: Jeramy Riley MR#: [id number] : 1940 Acct:[id number] Age/Sex: 82 / M Date of Service: 06/29/22 Loc: ED Accession Number: [id number] ?? Procedure: CT angio chest abdomen pelvis Ordering Provider: Joshua Almendarez MD PROCEDURE:? CT ANGIO CHEST ABDOMEN PELVIS ? INDICATIONS:? abd pain ? TECHNIQUE:? Precontrast 5 mm thick sections acquired from the lung apices to the iliac crests.? After the administration of intravenous contrast, 2.5 mm thick sections again acquired from the lung apices to the iliac crests.? Maximum intensity projection (MIP) oblique sagittal and coronal reformats were then acquired.? For radiation dose reduction, the following was used:? automated exposure control.? ? COMPARISON:? [facility], CT, CT ABDOMEN PELVIS W CON, 03/02/2022, 1:03. ? FINDINGS:? Image quality:? Excellent.? ? AORTA:? Noncontrast images demonstrate no evidence of intramural hematoma.? The aorta is normal in caliber and contour without intimal flaps to suggest dissection.? There is conventional branching of the aortic arch.? The visualized great vessels are normal in caliber and appear patent.? The celiac, superior mesenteric, and inferior mesenteric arteries are patent.? There are single renal arteries bilaterally which also appear patent.? The common, external, and internal iliac arteries appear patent.? The common femoral and visualized proximal superficial femoral arteries appear patent. ? Lung bases:? Unremarkable.? ? Heart:? Heart is normal in size. ? ? CHEST:? Lower Neck: No lymphadenopathy by size criteria. Thyroid:? Visualized thyroid demonstrates no discrete nodules. Axillae: No lymphadenopathy by size criteria. Chest Wall:? There is a right chest wall pacemaker with leads extending into the right atrium and right ventricle.? Bones: Visualized osseous structures demonstrate no suspicious lesions. ? Lungs and Airways:? No acute consolidation.? There is mild dependent atelectasis.? The trachea and central airways are patent. Pleura: No pneumothorax or pleural effusions.? ? Heart: Heart size is normal.? No pericardial effusion. Thoracic Vessels: The pulmonary arteries demonstrate no filling defects to suggest central pulmonary embolism. Mediastinum and Jeannie: No lymphadenopathy by size criteria. Esophagus: No wall thickening. No hiatal hernia. ? Lung bases:? Unremarkable.? ? Heart:? Heart is normal in size. ? ? ABDOMEN: Liver:? No mass lesion. Gallbladder:? Within normal limits without calcified gallstones.? ? Biliary ducts:? No biliary ductal dilatation.? ? Pancreas:? Unremarkable.? ? Spleen:? Normal in size.? ? Adrenal Glands:? No adrenal nodules.? ? Kidneys and Ureters:? No hydronephrosis.? There is a right renal cortical cyst.? 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 ? Stomach and Bowel:? Stomach, small bowel loops, and colon are normal in caliber and wall thickness.? No pericecal inflammatory changes to suggest appendicitis.? There is colonic diverticulosis without acute diverticulitis.? Peritoneum:? No abnormal intraperitoneal fluid.? No free air.? ? Ventral Wall: ? No hernia.? Abdominal Nodes:? No retroperitoneal or mesenteric adenopathy by size criteria.? Vessels:? Aorta and inferior vena cava are normal in size.? ? PELVIS: Pelvic Organs:? There is moderate enlargement of the prostate.? ? Bladder:? Unremarkable.? ? Pelvic Nodes: No enlarged lymph nodes.? Miscellaneous:? There is a small fat-containing left inguinal hernia. ? Bones:? Visualized osseous structures demonstrate no suspicious focal lesions. ? IMPRESSION:? ? 1. No evidence of aortic aneurysm or dissection. ? 2. No evidence of central pulmonary embolism. ? 3. No definite acute intra-abdominal abnormality.? Dictated by: Steven Landa M.D. on 06/29/2022 at 21:59 ? ? Approved by: Steven Landa M.D. on 06/29/2022 at 22:06 ? MDM Narrative Medical decision making narrative: Appropriate for discharge home. Exam and laboratory studies are reassuring. Patient will need referral to Gastroenterology and General surgery. I did give referral for General surgery tonight. Patient can see family doctor for Gastroenterology Services. We do not have GI on-call. Pain is controlled at time of discharge. Return precautions reviewed with patient and . They agree with treatment plan and desire discharge home Discharge Plan Departure Patient Disposition: Home Clinical Impression: Abdominal pain Instructions: DI for Abdominal Pain-Adult Activity Restrictions/Additional Instructions: No driving operating machinery tonight. Please see family doctor next week for referral for Gastroenterology. Please call provided general surgery office on Saturday to make appointment for office re-evaluation of your abdominal pain. Return if worse if any questions or concerns. May continue home medications. Prescriptions: No Action aspirin 81 MG tablet,delayed release (DR/EC) 81 mg PO QDAY Qty: 0 ferrous sulfate [Iron (ferrous sulfate)] 325 MG tablet 325 mg PO QDAY Qty: 0 omega 6-duv-hws-fish oil [Fish Oil] 1,000 MG capsule 1,000 mg PO DAILY Qty: 0 metoprolol succinate 25 mg tablet extended release 24 hr 12.5 mg PO DAILY sildenafil (pulm.hypertension) 20 mg tablet 20 mg PO DAILY Qty: 60 0RF Rx Instructions: take 3 tablets by mouth daily as needed prior to sexual activity. multivitamin Tablet 1 tab PO DAILY fexofenadine 180 mg tablet 180 mg PO DAILY betamethasone valerate 0.1 % ointment See Rx Instructions topical DAILY Qty: 15 0RF Rx Instructions: Apply to the head of the penis twice daily until rash resolves omeprazole 20 mg capsule,delayed release(DR/EC) 20 mg PO 2XW Referrals: Blanca Elizabeth MD [Physician] - Crispin Morris DO [Primary Care Provider] - Visit Report Forms: Patient Portal/API
[2022-06-29] MEDS: SODIUM CHLORIDE 0.9% 1,000 ML 1000 ML IV (20:53)
[2022-06-29] MEDS: MORPHINE 4 MG/ML INJ IM (22:37)
[2022-06-29] MEDS: ONDANSETRON 4 MG/2 ML INJ IM (22:37)
== END 2022-06-29 22:41 | disposition home or self-care (01) ==
PROVIDERS: Emergency Provider Emergency Medicine; PCP Family Medicine
DX: R10.33 Periumbilical pain (principal); Z79.899 Other long term (current) drug therapy
CPT/HCPCS: 71275; 74174; 80053; 83690; 85025; 96360; 96361; 96372; 99284; J2270; J2405; Q9967

== ENCOUNTER → 2022-09-27 10:53 | Outpatient (CLI) | payer MEDICARE, BC, SELFPAY | PROVIDERS: PCP Family Medicine; Visit Provider Family Medicine | DX: R39.89 Other symptoms and signs involving the genitourinary system | CPT/HCPCS: 87086 ==

== ENCOUNTER → 2022-10-24 09:11 | Outpatient (CLI) | payer MEDICARE, BC, SELFPAY ==
--- NOTE | 2022-10-24 | DI.US.S_ITS ---
PROCEDURE: US ABDOMEN LIMITED INDICATIONS: PERIUMBILICAL PT TENDERNESS ABD WALL TECHNIQUE: Real-time scanning was performed of the abdominal and retroperitoneal organs, with image documentation. COMPARISON: [facility], CT, CT ABDOMEN PELVIS W CON, 08/29/2021, 16:09. FINDINGS: Ultrasound was performed in the area of interest. No hernia is identified. No free abdominal fluid. Note is made of ectopic left kidney in the left iliac fossa measuring 11 cm in length. No stones or hydronephrosis. IMPRESSION: 1. A cause for periumbilical pain is not identified. If clinical symptoms persist, consider CT for follow-up 2. Ectopic left kidney. No stones or hydronephrosis. 3. No free fluid. Dictated by: Mariola Rothman M.D. on 10/25/2022 at 9:22 Approved by: Mariola Rothman M.D. on 10/25/2022 at 9:26
== END ==
PROVIDERS: PCP Family Medicine; Referring Provider Family Medicine; Visit Provider Family Medicine
DX: R10.815 Periumbilic abdominal tenderness (principal)
CPT/HCPCS: 76705

== ENCOUNTER → 2022-11-22 12:02 | Outpatient (CLI) | payer MEDICARE, BC, SELFPAY | PROVIDERS: PCP Family Medicine; Visit Provider Urology | DX: R39.89 Other symptoms and signs involving the genitourinary system (principal); R39.9 Unspecified symptoms and signs involving the genitourinary system; R35.1 Nocturia; N52.01 Erectile dysfunction due to arterial insufficiency; Z87.442 Personal history of urinary calculi | CPT/HCPCS: 51798; 81002; 87086; 99214 ==

== ENCOUNTER → 2023-01-22 15:00 | Outpatient (CLI) | payer MEDICARE, BC, SELFPAY | PROVIDERS: PCP Family Medicine; Visit Provider Family Medicine | DX: N40.1 Benign prostatic hyperplasia with lower urinary tract symptoms (principal); R10.9 Unspecified abdominal pain; R35.1 Nocturia | CPT/HCPCS: 81002; 87086 ==

== ENCOUNTER → 2023-02-12 10:20 | Outpatient (CLI) | payer MEDICARE, BC, SELFPAY ==
[2023-02-12 20:05] LABS: Add Manual Diff / Slide Review NO; Basophils Absolute Auto 0 /uL (0-100); Basophils Percent Auto 0.6 % (0-2); Eosinophils Absolute Auto 100 /uL (0-450); Eosinophils Percent Auto 2.6 % (2-4); Hematocrit 40.4 % (41-53); Lymphocytes Absolute Auto 1700 /uL (1100-4500); Lymphocytes Percent Auto 37.6 % (25-40); Mean Corpuscular HGB Conc 34.6 % (30-36); Mean Corpuscular Hemoglobin 32.3 PG (26-34); Mean Corpuscular Volume 93.6 fL (80-100); Monocytes Absolute Auto 600 /uL (0-900); Monocytes Percent Auto 12.1 % (3-14); Neutrophils Absolute Auto 2100 /uL (1500-7000); Neutrophils Percent Auto 47.1 % (50-75); Platelet Count 263 X10^3/uL (150-400); Red Blood Cell Count 4.32 X10^6/uL (4.5-5.9); White Blood Cell Count 4.6 X10^3/uL (4.5-11.0)
[2023-02-12 20:22] LABS: Alanine Aminotransferase 31 IU/L (<50); Albumin 4.1 g/dL (3.5-5.0); Albumin Globulin Ratio 1.2 (1.0-2.8); Alkaline Phosphatase 68 U/L (38-126); Aspartate Aminotransferase 30 IU/L (17-59); BUN Creatinine Ratio 23.3 (6-22); Bilirubin Total 0.7 mg/dL (0.2-1.3); Blood Urea Nitrogen 24 mg/dL (9-20); Calcium 10.3 mg/dL (8.4-10.2); Carbon Dioxide 30 mmol/L (22-32); Chloride 101 mmol/L (98-107); Cholesterol 199 mg/dL (140-199); Estimated Glomerular Filt Rate > 60 mL/min (>60); Globulin 3.3 g/dL (1.7-4.1); Glucose 95 mg/dL (80-110); HDL Cholesterol 49 mg/dL (40-60); HEMOLYSIS < 15 (0-50); LDL Cholesterol Calculated 119 mg/dL (<100); Sodium 138 mmol/L (137-145); Total Protein 7.4 g/dL (6.3-8.2); Triglycerides 155 mg/dL (35-150)
[2023-02-14 00:07] LABS: x Labcorp Estim. Avg Glu (eAG) 117 mg/dL (.); x Labcorp Hemoglobin A1c 5.7 % (4.8-5.6)
== END ==
PROVIDERS: PCP Family Medicine; Visit Provider Family Medicine
DX: R10.32 Left lower quadrant pain (principal); I10 Essential (primary) hypertension; R35.1 Nocturia; R73.09 Other abnormal glucose; R39.89 Other symptoms and signs involving the genitourinary system
CPT/HCPCS: 80053; 80061; 83036; 85025

== ENCOUNTER → 2023-03-25 09:36 | Outpatient (CLI) | payer MEDICARE, BC, SELFPAY ==
[2023-03-27 13:21] LABS: Fecal Immunochemical Test Negative (Negative)
== END ==
PROVIDERS: PCP Family Medicine; Visit Provider Family Medicine
DX: D64.9 Anemia, unspecified (principal); E83.52 Hypercalcemia; R10.9 Unspecified abdominal pain; R73.09 Other abnormal glucose
CPT/HCPCS: 82274

== ENCOUNTER → 2023-03-26 09:25 | Outpatient (CLI) | payer MEDICARE, BC, SELFPAY ==
--- NOTE | 2023-03-26 09:28 | DI.CT.S_ITS ---
PROCEDURE: CT ANGIO ABDOMEN PELVIS INDICATIONS: abd pain without etiology. concern for DIMPLE (presumed to stand for possible nonocclusive mesenteric ischemia). NEEDS MRA- has pacemaker TECHNIQUE: After the administration of intravenous contrast, 2.5 mm sections acquired from the diaphragm to the iliac crests. 10 mm maximum intensity projection (MIP) coronal and sagittal reformats were then performed. For radiation dose reduction, the following was used: automated exposure control. COMPARISON: [facility], CT, CT ANGIO CHEST ABDOMEN PELVIS, 06/29/2022, 20:39. FINDINGS: Image quality: Excellent. Extravascular tissues: Lung bases are clear. Four-chamber cardiomegaly, pacemaker. Liver is normal in size and enhancement. Gallbladder is unremarkable . Biliary system is non dilated. Pancreas enhances normally. Spleen is normal in size and enhancement. No adrenal nodules. Kidneys are normal in size and enhancement, without hydronephrosis. 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 Non-opacified bowel loops demonstrate normal wall thickness and caliber. Prominent sigmoid diverticulosis. Question very mild changes of acute diverticulitis involving the distal sigmoid colon. No free fluid or air. No retroperitoneal or mesenteric adenopathy. Tiny fat containing periumbilical hernia. No suspicious bony abnormalities. No vertebral body compression fractures. Fat containing left inguinal hernia. There is also a minimal amount of sigmoid colon extending into the hernia. Prostate is enlarged. The mild diffuse bladder wall thickening. Scoliotic curvature. Lumbar degenerative change. Multilevel canal stenosis in the lumbar spine. Findings include multilevel foraminal narrowing as well. Abdominal aorta: Normal caliber. No dissection. Mesenteric arteries: Unremarkable. Celiac, SMA, KASSANDRA, and bilateral renal arteries are widely patent. Peripheral mesenteric vascular structures are normal in caliber without aneurysms or occlusions or focal filling defects. Renal arteries: Widely patent. IMPRESSION: 1. Unremarkable mesenteric vasculature. No findings suspicious for acute or chronic mesenteric ischemia. No vasculitis identified. 2. Note made of pelvic left kidney. 3. Diverticulosis with question of very mild diverticulitis involving the distal sigmoid colon. 4. Lumbar degenerative change with multilevel canal stenosis and foraminal stenosis. 5. Left inguinal hernia containing minimal colon. Dictated by: Ashok Price M.D. on 03/26/2023 at 13:14 Approved by: Ashok Price M.D. on 03/26/2023 at 13:41
[2023-03-26 10:29] LABS: Alanine Aminotransferase 27 IU/L (<50); Albumin 4.2 g/dL (3.5-5.0); Albumin Globulin Ratio 1.4 (1.0-2.8); Alkaline Phosphatase 55 U/L (38-126); Aspartate Aminotransferase 31 IU/L (17-59); BUN Creatinine Ratio 28.3 (6-22); Bilirubin Total 0.6 mg/dL (0.2-1.3); Blood Urea Nitrogen 28 mg/dL (9-20); Calcium 10.1 mg/dL (8.4-10.2); Carbon Dioxide 29 mmol/L (22-32); Chloride 103 mmol/L (98-107); Estimated Glomerular Filt Rate > 60 mL/min (>60); Globulin 3.1 g/dL (1.7-4.1); Glucose 81 mg/dL (80-110); HEMOLYSIS < 15 (0-50); Potassium 4.7 mmol/L (3.4-5.1); Sodium 136 mmol/L (137-145); Total Protein 7.3 g/dL (6.3-8.2)
[2023-03-26 11:04] LABS: Ferritin 111 ng/mL (18-464)
[2023-03-26 11:25] LABS: Add Manual Diff / Slide Review NO; Basophils Absolute Auto 100 /uL (0-100); Basophils Percent Auto 1.2 % (0-2); Eosinophils Absolute Auto 200 /uL (0-450); Eosinophils Percent Auto 3.3 % (2-4); Hemoglobin 13.3 g/dL (13.5-17.5); Lymphocytes Absolute Auto 1800 /uL (1100-4500); Lymphocytes Percent Auto 36.3 % (25-40); Mean Corpuscular Hemoglobin 32.2 PG (26-34); Mean Corpuscular Volume 94.9 fL (80-100); Monocytes Absolute Auto 600 /uL (0-900); Monocytes Percent Auto 12.6 % (3-14); Neutrophils Absolute Auto 2300 /uL (1500-7000); Neutrophils Percent Auto 46.6 % (50-75); Platelet Count 232 X10^3/uL (150-400); Red Blood Cell Count 4.12 X10^6/uL (4.5-5.9); Red Cell Distribution Width 13.3 % (11.6-14.8); White Blood Cell Count 4.9 X10^3/uL (4.5-11.0)
[2023-03-26 11:49] LABS: Reticulocyte Count, Percent 1.3 % (0.9-2.6)
[2023-03-26 11:53] LABS: HEMOLYSIS < 15 (0-50); Iron 109 ug/dL (49-181)
[2023-03-26 12:05] LABS: Percent Iron Saturation 33 % (20-50); Total Iron Binding Capacity 327 ug/dL (261-462); Transferrin 241 mg/dL (206-381)
[2023-03-27 18:47] LABS: Ionized Calcium 5.4 mg/dL (4.5-5.6)
[2023-03-27 20:37] LABS: Free Kappa Lt Chains, Serum 32.9 mg/L (3.3-19.4)
[2023-03-28 09:09] LABS: Calcium 9.9 mg/dL (8.6-10.2); Parathyroid Hormone, Intact 49 pg/mL (15-65)
[2023-03-28 12:36] LABS: Albumin 3.7 g/dL (2.9-4.4); Alpha-1-Globulin 0.2 g/dL (0.0-0.4); Alpha-2-Globulin 0.7 g/dL (0.4-1.0); Protein, Total 6.7 g/dL (6.0-8.5)
== END ==
PROVIDERS: PCP Family Medicine; Referring Provider Family Medicine; Visit Provider Family Medicine
DX: G62.9 Polyneuropathy, unspecified (principal); I44.7 Left bundle-branch block, unspecified; D64.9 Anemia, unspecified; R10.32 Left lower quadrant pain; R73.09 Other abnormal glucose; E83.52 Hypercalcemia; K57.30 Diverticulosis of large intestine without perforation or abscess without bleeding; M47.816 Spondylosis without myelopathy or radiculopathy, lumbar region; M48.061 Spinal stenosis, lumbar region without neurogenic claudication; K40.90 Unilateral inguinal hernia, without obstruction or gangrene, not specified as recurrent; Z95.0 Presence of cardiac pacemaker
CPT/HCPCS: 74174; 80053; 82310; 82330; 82728; 83540; 83550; 83883; 83970; 84155; 84165; 85025; 85045; Q9967

== ENCOUNTER 2023-05-28 07:57 | Day surgery (SDC) | payer MEDICARE, BC, SELFPAY ==
[2023-05-24 08:22] VITALS: BMI 25.8
[2023-05-28 08:16] VITALS: BMI 25.8
[2023-05-28 08:27] VITALS: BP 129/73; PULSE 74; RESP 16; TEMP 36.3; O2SAT 98
[2023-05-28] MEDS: LACTATED RINGERS 1,000 ML 42 ML IV ×2 (08:36→10:17)
--- NOTE | 2023-05-28 08:45 | P.HP_ITS ---
History of Present Illness History of Present Illness Chief complaint: Left Hernia Repair - Inguinal/Hernia Repair - Umbi Narrative: Tyler is an 83-year-old man who has a left inguinal hernia and periumbilical hernia. See if the office note from March for details. 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) Surgical History History of laparoscopy H/O vasectomy H/O hernia repair Social History marital status: household members: spouse lives independently: Yes Smoking Status: Never smoker alcohol intake: current Meds Home Medications and Allergies Home Medications Medication Instructions Recorded Confirmed Type aspirin 81 mg tablet,delayed 81 mg PO QDAY ##0 01/22/17 05/28/23 History release ferrous sulfate 325 mg (65 mg 325 mg PO QDAY ##0 01/22/17 05/28/23 History iron) tablet (Iron (ferrous sulfate)) omega 1-xqt-ksj-fish oil 1,000 mg 1,000 mg PO DAILY ##0 02/28/17 05/28/23 History (120 mg-180 mg) capsule (Fish Oil) metoprolol succinate 25 mg 25 mg PO DAILY 07/10/21 05/28/23 History tablet,extended release 24 hr multivitamin 1 tab PO DAILY 03/26/22 05/28/23 History omeprazole 20 mg capsule,delayed 20 mg PO 2XW 05/23/22 05/28/23 History release sildenafil (pulm.hypertension) 20 20 mg PO DAILY #60 tabs 08/06/22 05/23/23 Rx mg tablet Allergies Allergy/AdvReac Type Severity Reaction Status Date / Time bee venom protein (honey bee) Allergy Severe Anaphylaxis Verified 04/11/23 15:55 Exam Vital Signs (past 8 hours): - 05/28/23 08:27 Temperature 97.3 F L Pulse Rate 74 Respiratory Rate 16 Blood Pressure 129/73 Pulse Oximetry 98 Oxygen Delivery Method Room Air Oxygen Delivery Method Room Air Const General: healthy appearing Assessment & Plan Assessment and plan (1) Left inguinal hernia: Status: Acute (2) Umbilical hernia: Qualifiers: Obstruction and gangrene presence: without obstruction or gangrene Qualified Code(s): K42.9 - Umbilical hernia without obstruction or gangrene Status: Acute Plan We reviewed the risks and benefits of open left inguinal hernia repair and umbilical hernia repair with mesh and he would like to proceed.
[2023-05-28] MEDS: CEFAZOLIN 2 GM/100 ML PREMIX 100 ML IV (09:35)
[2023-05-28] MEDS: ACETAMINOPHEN IV 1,000 MG/100 ML VIAL 400 MG IV (09:45)
--- NOTE | 2023-05-28 09:57 | SUR.OPER ---
Supine on padded OR bed, head on pillow, arms secured on padded arm boards at <90 degrees abduction, legs uncrossed, safety belt at thigh, tape over blanket over lower legs.
[2023-05-28] MEDS: BUPIVACAINE 0.5% (PF) 30 ML, EPINEPHrine 0.15 MG INJ (10:04)
[2023-05-28 11:20] VITALS: BP 128/67; PULSE 60; RESP 14; TEMP 36; O2SAT 97
[2023-05-28 11:25] VITALS: BP 102/62; PULSE 60; RESP 12; O2SAT 94
[2023-05-28 11:30] VITALS: BP 113/68; PULSE 60; RESP 13; TEMP 36; O2SAT 96
[2023-05-28 11:36] VITALS: BP 128/65; PULSE 60; RESP 18; TEMP 36; O2SAT 97
[2023-05-28 11:42] VITALS: BP 126/68; PULSE 60; RESP 12; TEMP 36.1; O2SAT 97
--- NOTE | 2023-05-28 11:57 | PM.OP.1 ---
Operative Date/Time/Diagnoses Date of procedure: 05/28/23 Time of procedure: 11:58 Pre-op diagnosis: Left inguinal and umbilical hernia Post-op diagnosis: same Procedure & Clinicians Procedure: Open left inguinal hernia repair with mesh Umbilical hernia repair with mesh Same procedure as scheduled: Yes Surgeon: Eliceo Mehta Community Educator: Sandoval Mathew Anesthesia Type: General Operative Notes Procedure in detail: Preoperative antibiotic was administered. The patient was brought to the operating room and placed on the table in supine position general anesthesia was induced. The left groin was prepped and draped in the normal fashion and a time-out was performed. Roughly 10 mL of local anesthetic were injected into the skin and subcutaneous adipose tissue over the left groin. A 6 cm incision was made over the left inguinal canal. Dissection was carried down through the subcutaneous adipose tissue. A bridging vein was cauterized. We exposed the external oblique aponeurosis in the direction of the fibers. Additional local was injected deep to the aponeurosis. A 15 blade scalpel was used to lopez the external oblique aponeurosis. Metzenbaum scissors were used to carefully open the aponeurosis in the direction of the fibers taking care not to injure the underlying ilioinguinal nerve which was well seen and protected. We completely exposed the inguinal canal. The cord was dissected free from the inguinal ligament and floor of the inguinal canal and the external oblique aponeurosis was dissected off of the internal oblique taking care not to injure the hypogastric nerve. We encircled the cord with a Adalberto drain for retraction. There was a indirect fact containing fat. The dissected out a fatty cord lipoma and reduced the rest of the cord fat back through the internal ring. We placed a polypropylene mesh over the inguinal canal floor. The mesh was secured with multiple interrupted 3-0 Prolene sutures to the pubic tubercle and shelving edge of the inguinal ligament as well as to the conjoint tendon medially. We overlapped the tails to recreate an internal ring and secured the medial tail to the inguinal ligament with additional sutures. We injected some more local into the fatty tissue in the inguinal canal and cord. Finally, we removed the [place] drain and closed the external oblique fascia with a running 3-0 Vicryl suture. Skin was closed with interrupted 3-0 Vicryl dermal sutures and a running 4 Monocryl subcuticular stitch. Next we moved onto the umbilical hernia. We made a 4 cm infraumbilical incision and dissected down to the base of the umbilical stalk which was divided. We encountered a 1 cm fascial defect. We closed the defect with 3 interrupted 0 Ethibond sutures and clear the fat off the anterior sheath circumferentially 2 cm in all directions. We then placed a piece of polypropylene mesh and bonded it to the fascia with Tisseel. We then closed the small skin defect in umbilical skin with 3-0 Vicryl suture. We then tacked the umbilical stalk down to the deep tissue and closed the incision in layers using multiple interrupted 3-0 Vicryl dermal sutures and a running 4-0 Monocryl subcuticular stitch. EBL 20 mL Sandoval HAMILTON provided assistance with exposure, retraction and closure of incisions. The patient was awakened and brought to recovery room. Post-operative Condition: stable Disposition: PACU
== END 2023-05-28 12:23 | disposition home or self-care (01) ==
PROVIDERS: PCP Family Medicine; Referring Provider Surgery; Visit Provider Surgery
PROC: (CPT 49591; principal; 2023-05-28 09:15)
PROC: (CPT 49591; 2023-05-28 09:15)
DX: K42.9 Umbilical hernia without obstruction or gangrene (principal); K40.90 Unilateral inguinal hernia, without obstruction or gangrene, not specified as recurrent; D17.6 Benign lipomatous neoplasm of spermatic cord
CPT/HCPCS: 49591; 49505; J0131; J0171; J0690; J1100; J1170; J2405; J2704; J3010; J3490

== ENCOUNTER → 2023-12-19 12:40 | Outpatient (CLI) | payer MEDICARE, BC, SELFPAY ==
--- NOTE | 2023-12-19 12:43 | DI.CT.S_ITS ---
PROCEDURE: CT LUMBAR SPINE WO CON INDICATIONS: Radiculopathy, myelopathy suspect lower thoracic spine. New TECHNIQUE: Noncontrast 3 mm thick sections acquired from the T12 level to the sacrum. Sagittal and coronal reformats were constructed. For radiation dose reduction, the following was used: automated exposure control. COMPARISON: None. FINDINGS: Please note there is partially lumbarized S1. Mild levoscoliosis of the lumbar spine. Vertebral body height of the lumbar spine is well maintained. Multilevel, moderate degenerative disc disease of the lumbar spine. Multilevel moderate right lower lumbar facet arthropathy. Central canal stenosis: Moderate at L4-5, mild at L5-S1. Visualized sacrum is intact. Multiple chronic fracture of the left transverse process of the lumbar spine. No acute fracture of the lumbar spine. Bridging osteophyte of bilateral superior sacroiliac joint. Soft tissue findings: Right renal cyst. The abdominal aorta is tortuous. Mild calcification of the abdominal aorta. No abdominal aortic aneurysm. Left pelvic kidney is noted. IMPRESSION: 1. No acute fracture in the lumbar spine. 2. Partially lumbarized S1. Moderate central canal stenosis at L4-5. 3. Left, unascended pelvic kidney. Dictated by: Tram Aguila M.D. on 12/19/2023 at 20:46 Approved by: Tram Aguila M.D. on 12/19/2023 at 20:55
--- NOTE | 2023-12-19 12:43 | DI.CT.S_ITS ---
PROCEDURE: CT THORACIC SPINE WO CON INDICATIONS: Radiculopathy, myelopathy suspect lower thoracic spine. New TECHNIQUE: Noncontrast 3 mm thick sections acquired through the region of interest in the thoracic spine. Sagittal and coronal reformats were then constructed. For radiation dose reduction, the following was used: automated exposure control. COMPARISON: [facility] ([place]), CR, XR THORACIC SPINE 3V, 12/03/2023, 16:14. FINDINGS: Image quality: Diagnostic. Moderate degenerative changes of the lower cervical spine. 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 Mild superior endplate deformity of T4, favoring chronic. Mild superior endplate fracture of T12, chronic and unchanged.. Bridging osteophytes of the thoracic spine, consistent with diffuse idiopathic skeletal hyperostosis. Alignment thoracic spine is grossly anatomic. Multilevel disc desiccation and disc bulge. Small posterior disc osteophyte complex at T12-L1, resulting in mild osseous central canal stenosis. No acute fracture of the thoracic spine. Multilevel left posterior healed rib fracture. Soft tissue findings: Respiratory motion bilateral lung, limited evaluation. Visualized bilateral lungs are otherwise unremarkable. Left subclavian pacer defibrillator, terminates in the right ventricular apex and the right ventricle. No thoracic aorta aneurysm. No calcification of the thoracic aorta. Mild LAD coronary artery calcification. The left adrenal gland and the left kidney is not visualized in the left renal fossa. Right renal cyst. IMPRESSION: 1. Chronic endplate fracture of T4 and T12. 2. No acute fracture of the thoracic spine. Dictated by: Tram Aguila M.D. on 12/19/2023 at 20:19 Approved by: Tram Aguila M.D. on 12/19/2023 at 20:32
== END ==
PROVIDERS: PCP Family Medicine; Referring Provider Family Medicine; Visit Provider Family Medicine
DX: M51.14 Intervertebral disc disorders with radiculopathy, thoracic region (principal); M51.04 Intervertebral disc disorders with myelopathy, thoracic region; M51.16 Intervertebral disc disorders with radiculopathy, lumbar region; M51.06 Intervertebral disc disorders with myelopathy, lumbar region; M48.05 Spinal stenosis, thoracolumbar region; M48.061 Spinal stenosis, lumbar region without neurogenic claudication; M48.07 Spinal stenosis, lumbosacral region; M84.48XA Pathological fracture, other site, initial encounter for fracture; N28.89 Other specified disorders of kidney and ureter; R29.898 Other symptoms and signs involving the musculoskeletal system; N28.1 Cyst of kidney, acquired; I25.10 Atherosclerotic heart disease of native coronary artery without angina pectoris; I70.0 Atherosclerosis of aorta; G25.3 Myoclonus; M41.9 Scoliosis, unspecified; Q76.49 Other congenital malformations of spine, not associated with scoliosis; Q63.2 Ectopic kidney; M25.551 Pain in right hip; Z87.828 Personal history of other (healed) physical injury and trauma; Z53.09 Procedure and treatment not carried out because of other contraindication; Z95.0 Presence of cardiac pacemaker
CPT/HCPCS: 72128; 72131

== ENCOUNTER → 2024-01-20 14:01 | Outpatient (CLI) | payer MEDICARE, BC, SELFPAY ==
[2024-01-20 20:03] LABS: Add Manual Diff / Slide Review NO; Basophils Absolute Auto 0 /uL (0-100); Basophils Percent Auto 0.7 % (0-2); Eosinophils Absolute Auto 100 /uL (0-450); Eosinophils Percent Auto 2.9 % (2-4); Hematocrit 39.2 % (41-53); Hemoglobin 13.3 g/dL (13.5-17.5); Lymphocytes Absolute Auto 1700 /uL (1100-4500); Lymphocytes Percent Auto 34.6 % (25-40); Mean Corpuscular HGB Conc 33.9 % (30-36); Mean Corpuscular Hemoglobin 32.6 PG (26-34); Mean Corpuscular Volume 96.3 fL (80-100); Monocytes Absolute Auto 500 /uL (0-900); Monocytes Percent Auto 10.4 % (3-14); Neutrophils Absolute Auto 2600 /uL (1500-7000); Neutrophils Percent Auto 51.4 % (50-75); Platelet Count 213 X10^3/uL (150-400); Red Blood Cell Count 4.07 X10^6/uL (4.5-5.9); Red Cell Distribution Width 13.4 % (11.6-14.8)
[2024-01-20 20:14] LABS: Alanine Aminotransferase 25 IU/L (<50); Albumin 4.1 g/dL (3.5-5.0); Albumin Globulin Ratio 1.5 (1.0-2.8); Alkaline Phosphatase 60 U/L (38-126); Aspartate Aminotransferase 31 IU/L (17-59); BUN Creatinine Ratio 25.2 (6-22); Bilirubin Total 0.5 mg/dL (0.2-1.3); Blood Urea Nitrogen 29 mg/dL (9-20); Calcium 10.2 mg/dL (8.4-10.2); Carbon Dioxide 29 mmol/L (22-32); Chloride 106 mmol/L (98-107); Estimated Glomerular Filt Rate > 60 mL/min (>60); Globulin 2.7 g/dL (1.7-4.1); Glucose 104 mg/dL (80-110); HEMOLYSIS < 15 (0-50); Potassium 5.2 mmol/L (3.4-5.1); Sodium 138 mmol/L (137-145); Total Protein 6.8 g/dL (6.3-8.2)
[2024-01-20 20:46] LABS: Ferritin 109 ng/mL (18-464)
== END ==
PROVIDERS: PCP Family Medicine; Visit Provider Family Medicine
DX: K92.1 Melena (principal); K57.92 Diverticulitis of intestine, part unspecified, without perforation or abscess without bleeding
CPT/HCPCS: 80053; 82728; 85025

== ENCOUNTER → 2024-01-30 12:40 | Outpatient (CLI) | payer MEDICARE, BC, SELFPAY ==
--- NOTE | 2024-01-30 12:42 | DI.CT.S_ITS ---
PROCEDURE: CT ABDOMEN PELVIS W CON INDICATIONS: recurrent diverticulitis, hematochezia TECHNIQUE: After the administration of intravenous contrast, axial sections acquired from the lung bases to the pubic symphysis. Coronal and sagittal reformats were performed. For radiation dose reduction, the following was used: automated exposure control, adjustment of mA and/or kV according to patient size. COMPARISON: [facility], CT, CT LUMBAR SPINE WO CON, 12/19/2023, 13:14. [facility], CT, CT ABDOMEN PELVIS W CON, 03/02/2022, 1:03. FINDINGS: Image quality: Diagnostic. Lower Chest: Pacemaker. Extreme lung bases are clear. ABDOMEN: Liver: No solid mass. Gallbladder: No radiopaque gallstones or wall thickening. Biliary ducts: No biliary dilation. Pancreas: No ductal dilation. Spleen: Size is within normal limits. Adrenal Glands: No adrenal nodules. Kidneys and Ureters: Ectopic malrotated pelvic left kidney. No hydronephrosis. Right kidney is unremarkable. Stomach and Bowel: Normal colonic caliber, without significant wall thickening. Moderately large fecal load. Diverticulosis without evidence of diverticulitis. Peritoneum: No abnormal intraperitoneal fluid. No free air. Ventral Wall: No significant ventral hernia. Abdominal Nodes: No retroperitoneal or mesenteric adenopathy by size criteria. Vessels: Aorta and inferior vena cava are normal in size. PELVIS: Pelvic Organs: Moderate prostatomegaly.. Bladder: No bladder wall thickening, accounting for underdistention. Pelvic Nodes: No enlarged lymph nodes. Miscellaneous: Fat containing right inguinal hernia. Evidence of bilateral previous hernia repairs. Bones: No aggressive osseous abnormality. Dextrocurvature centered at L1-L2. Diffuse lumbar degenerative change. IMPRESSION: 1. Diverticulosis without evidence of diverticulitis. 2. Moderately large fecal load. 3. No acute abdominal process. 4. Diffuse hepatic steatosis. 5. Pelvic left kidney. 6. Prostatomegaly. Dictated by: Ashok Price M.D. on 01/30/2024 at 13:27 Approved by: Ashok Price M.D. on 01/30/2024 at 13:40
== END ==
PROVIDERS: PCP Family Medicine; Referring Provider Family Medicine; Visit Provider Family Medicine
DX: K57.92 Diverticulitis of intestine, part unspecified, without perforation or abscess without bleeding (principal); K92.1 Melena; N40.0 Benign prostatic hyperplasia without lower urinary tract symptoms; K76.0 Fatty (change of) liver, not elsewhere classified; K40.91 Unilateral inguinal hernia, without obstruction or gangrene, recurrent; Z95.0 Presence of cardiac pacemaker
CPT/HCPCS: 74177; Q9967

== ENCOUNTER → 2024-02-11 11:01 | Outpatient (CLI) | payer MEDICARE, BC, SELFPAY | PROVIDERS: PCP Family Medicine; Visit Provider Physician Assistant Medical | DX: R30.9 Painful micturition, unspecified (principal) | CPT/HCPCS: 87077; 87086; 87186 ==

== ENCOUNTER 2024-07-30 12:16 | Outpatient (CLI) | payer MEDICARE, BC, SELFPAY ==
[2024-07-30] VITALS (10 sets, daily range): BP systolic 101–139; BP diastolic 56–73; PULSE 60–77; RESP 12–20; TEMP 36.2; O2SAT 95–100
--- NOTE | 2024-07-30 12:19 | DI.RAD.S_ITS ---
PROCEDURE: PAIN L/S TRANSFORAMINAL INJECT INDICATIONS: RADICULOPATHY COMPARISON: None. FINDINGS/IMPRESSION: Fluoroscopic spot filming was performed to verify placement of spinal needles at the L4-L5 level(s), as labeled on the films. Appropriate location(s) of the needle tip(s) was confirmed by injection of iodinated contrast. Dictated by: Zachary Ramos M.D. on 07/30/2024 at 16:47 Approved by: Zachary Ramos M.D. on 07/30/2024 at 16:47
[2024-07-30] MEDS: MIDAZOLAM 2 MG/2 ML VIAL IV (13:24)
[2024-07-30] MEDS: DEXAMETHASONE 10 MG/ML VIAL INJ (13:33)
[2024-07-30] MEDS: BETAMETHASONE 30 MG/5 ML MDV 12 MG INJ (13:33)
[2024-07-30] MEDS: iopamidoL 15 ML VIAL 3 ML INJ (13:33)
[2024-07-30] MEDS: BUPIVACAINE 0.25% (PF) VIAL 2 ML INJ (13:33)
--- NOTE | 2024-07-30 13:49 | P.PCN_ITS ---
Date/Time/Diagnoses Date of procedure: 07/30/24 Time of procedure: 13:49 Pre-procedure diagnosis: 1. FORAMINAL STENOSIS WITH LE SYMPTOMS Post-procedure diagnosis: same Procedure Notes Procedure: 1. FLUOROSCOPICALLY GUIDED CONTRAST CONTROLLED TRANSFORAMINAL EPIDURAL STEROID INJECTION - RIGHT L4/5 TFESI Indications: Jeramy is referred by Dr. Flowers for treatment of Foraminal Stenosis with Right LE Symptoms Physician: Thiago Mayo Total Fluoroscopy time (seconds): 8 Total sedation minutes: 19 Complications: none Procedure in detail & Post-procedure care: FINDINGS Foraminal Nerve Root Compression secondary to disc disease and facet hypertrophy DESCRIPTION OF PROCEDURE Following review of allergy and review of potential side effects and complications, including, but not necessarily limited to, infection, allergic reaction, local tissue breakdown, stroke, temporary or permanent nerve injury, paralysis, and possible , the patient indicated that the patient understood and agreed to proceed. An informed consent document was signed by the patient, witnessed by a nurse, and placed in the patient's chart. Additionally, other treatment options including medications, modalities, and physical therapy were reviewed with the patient. After review of previous anaesthesic history and IV conscious sedation the patient was deemed safe to proceed with today?s procedure with IV conscious sedation as ASA class II designation. Safety time-out was performed to confirm patient ID, procedure to be performed and site of procedure. IV sedation was accomplished with a combination of 2mg of Versed was administered by the RN after DO order, titrated to patient comfort during the course of the procedure while the patient remained responsive to all verbal commands In the prone position following sterile prep and drape of the lumbar region, the right L4/5 posterior neuroforamen was identified fluoroscopically. The skin was anesthetized via a 25-gauge 1.5-inch needle with 1% lidocaine solution. At this point, a 25-gauge 3.5-inch spinal needle was atraumatically introduced and advanced under fluoroscopic guidance through the posterior right L4/5 neuroforamen to approximately the anterior aspect of the canal. Depth was confirmed on lateral view. Following negative aspiration, injection of approximately 1.5cc of Isovue 200 under live fluoroscopy in the AP view confirmed excellent flow along the nerve root, into the epidural space without vascular or intrathecal uptake observed Radiological data, including multiple fluoroscopic views of the lumbosacral spine, reveal a spinal needle at the right L4/5 posterior neuroforamen. Subsequent views show flow of contrast material flowing superiorly and inferiorly along the nerve root confirming epidural flow. Subsequently, a test dose of 1.5 cc of 1% lidocaine solution was administered and patient was observed for two minutes for signs or symptoms of complications, including abdominal pain, shortness of breath, bilateral upper or lower extremity weakness, nausea and vomiting, prior to steroid injection. At this point, a total of 2cc or 10mg of dexamethasone and 6mg of betamethasone was injected without incident. The procedure tolerated the procedure well without signs or symptoms of complications prior to transfer to the recovery area continued monitoring without incident. The patient was then transferred to the recovery area where they were observed for an appropriate time after the injection. The patient reported a VAS score of 7 prior to the procedure and a post- procedure VAS of 0. POST OP INSTRUCTIONS The patient was provided a Pain Log to continue to record their response to the target-specific procedure prior to follow-up visit with their referring physician. Additionally, specific post-injection care instructions and a contact number to our office were provided if concerns arise regarding possible complications associated with the procedure are suspected.
--- NOTE | 2024-07-30 14:16 | P.PCN_ITS ---
Date/Time/Diagnoses Date of procedure: 07/30/24 Time of procedure: 14:17 Pre-procedure diagnosis: 1. FACET ARTHROPATHY Post-procedure diagnosis: same Procedure Notes Procedure: 1. BILATERAL L3, L4 AND L5 DIAGNOSTIC MB BLOCKS Indications: Jeramy is referred by Dr. Flowers for treatment of Bilateral Axial LBP. Physician: Thiago Mayo Total Fluoroscopy time (seconds): 12 Total sedation minutes: 13 Complications: none Procedure in detail & Post-procedure care: DESCRIPTION OF PROCEDURE Fluoroscopically guided, contrast-controlled bilateral L3, L4 AND L5 medial branch blocks with 0.5cc of 2% Lidocaine. Following review of allergy and review of potential side effects and complications, including, but not necessarily limited to, infection, allergic reaction, local tissue breakdown, nerve injury, paralysis, stroke and possible , the patient indicated that the patient understood and agreed to proceed. An informed consent document was signed by the patient, witnessed by a nurse, and placed in the patient's chart. After review of previous anaesthesic history and IV conscious sedation the patient was deemed safe to proceed with today's procedure with IV conscious sedation as ASA class II designation. Safety time-out was performed to confirm patient ID, procedure to be performed and site of procedure. IV sedation was accomplished with a combination of 2mg of Versed was administered by the RN after DO order, titrated to patient comfort during the course of the procedure while the patient remained responsive to all verbal commands In the prone position, following sterile prep and drape of the lumbar region, the right L3, L4 AND L5 anatomical location of the medial branch of the dorsal ramus was identified fluoroscopically. Subsequently an anesthetic skin wheal using 1% lidocaine solution was initiated at each of the anatomical spots. Subsequently then a 22-gauge 3.5-inch spinal needle was atraumatically introduced and advanced under fluoroscopic guidance at each of the corresponding sites at the right L3, L4 and L5 MB. After negative aspiration, 0.2cc of Isovue 200 was injected, confirming placement without vascular or intrathecal uptake. Subsequently then 0.5cc of 2% Lidocaine solution was injected at each of the corresponding sites at the right L3, L4 and L5 medial branch locations. The identical procedure was replicated on the left. The patient tolerated the procedure well without signs or symptoms of complications. The patient tolerated the procedure well without signs or symptoms of complications prior to transfer to the recovery area continued monitoring without incident. Post-procedure, the patient was monitored initiating provocative activities to measure the amount of relief from block of the facetogenic pain. The patient reported a VAS of 7 prior to the procedure and a post-procedure VAS of 1. It has been a pleasure to assist in the diagnostic and therapeutic care of your patient. POST OP INSTRUCTIONS The patient was provided with a Pain Log to complete over the next several hours and subsequent days prior to the patient's follow up with the ordering physician. If the patient has career law clerk relief to the solution applied, then they may be a candidate for medial branch rhizotomy. The patient is aware, was provided, once again, with a Pain Log and will follow up with the referring physician for review and clinical correlation
== END 2024-07-30 14:15 | disposition home or self-care (01) ==
PROVIDERS: Family Provider Family Medicine; PCP Family Medicine; Referring Provider Physical Medicine & Rehabilitation; Visit Provider Physical Medicine & Rehabilitation
DX: M48.061 Spinal stenosis, lumbar region without neurogenic claudication (principal); M51.16 Intervertebral disc disorders with radiculopathy, lumbar region; M47.26 Other spondylosis with radiculopathy, lumbar region
CPT/HCPCS: 64483; 99152; J0702; J1100; J2250; J3490

== ENCOUNTER → 2024-08-06 08:45 | Outpatient (CLI) | payer MEDICARE, BC, SELFPAY | PROVIDERS: Family Provider Family Medicine; PCP Family Medicine; Referring Provider Family Medicine; Visit Provider Family Medicine | DX: Z87.828 Personal history of other (healed) physical injury and trauma (principal); M48.061 Spinal stenosis, lumbar region without neurogenic claudication; M54.16 Radiculopathy, lumbar region; R29.898 Other symptoms and signs involving the musculoskeletal system | CPT/HCPCS: 95886; 95909 ==

== ENCOUNTER → 2024-12-08 10:35 | Outpatient (CLI) | payer MEDICARE, BC, SELFPAY ==
[2024-12-08 18:47] LABS: Add Manual Diff / Slide Review NO; Basophils Absolute Auto 0 /uL (0-100); Basophils Percent Auto 0.8 % (0-2); Eosinophils Absolute Auto 200 /uL (0-450); Hematocrit 42.7 % (41-53); Hemoglobin 14.4 g/dL (13.5-17.5); Lymphocytes Absolute Auto 1400 /uL (1100-4500); Lymphocytes Percent Auto 29.1 % (25-40); Mean Corpuscular HGB Conc 33.6 % (30-36); Mean Corpuscular Hemoglobin 32.1 PG (26-34); Mean Corpuscular Volume 95.5 fL (80-100); Monocytes Absolute Auto 600 /uL (0-900); Monocytes Percent Auto 11.3 % (3-14); Neutrophils Absolute Auto 2600 /uL (1500-7000); Neutrophils Percent Auto 53.8 % (50-75); Platelet Count 212 X10^3/uL (150-400); Red Blood Cell Count 4.47 X10^6/uL (4.5-5.9); Red Cell Distribution Width 13.3 % (11.6-14.8); White Blood Cell Count 4.9 X10^3/uL (4.5-11.0)
[2024-12-08 19:03] LABS: HEMOLYSIS < 15 (0-50); Iron 163 ug/dL (49-181)
[2024-12-08 19:07] LABS: Alanine Aminotransferase 29 IU/L (<50); Albumin 4.4 g/dL (3.5-5.0); Albumin Globulin Ratio 1.6 (1.0-2.8); Alkaline Phosphatase 61 U/L (38-126); Aspartate Aminotransferase 36 IU/L (17-59); BUN Creatinine Ratio 22.3 (6-22); Bilirubin Total 0.7 mg/dL (0.2-1.3); Blood Urea Nitrogen 25 mg/dL (9-20); Calcium 10.5 mg/dL (8.4-10.2); Carbon Dioxide 26 mmol/L (22-32); Chloride 102 mmol/L (98-107); Cholesterol 197 mg/dL (140-199); Estimated Glomerular Filt Rate > 60 mL/min (>60); Globulin 2.7 g/dL (1.7-4.1); Glucose 101 mg/dL (70-99); HDL Cholesterol 48 mg/dL (40-60); HEMOLYSIS < 15 (0-50); LDL Cholesterol Calculated 118 mg/dL (<100); Potassium 5.1 mmol/L (3.4-5.1); Sodium 137 mmol/L (137-145); Total Protein 7.1 g/dL (6.3-8.2); Triglycerides 154 mg/dL (35-150)
[2024-12-08 19:14] LABS: Percent Iron Saturation 55 % (20-50); Total Iron Binding Capacity 294 ug/dL (261-462); Transferrin 234 mg/dL (206-381)
[2024-12-08 19:39] LABS: Prostate Specific Antigen Scrn 1.92 ng/mL (0.1-4.0)
[2024-12-08 19:42] LABS: Ferritin 147 ng/mL (18-464)
[2024-12-08 20:09] LABS: Folate > 20.0 ng/mL (2.76-20.0); Vitamin B12 546 pg/mL (239-931)
== END ==
PROVIDERS: Family Provider Family Medicine; PCP Family Medicine; Visit Provider Family Medicine
DX: I10 Essential (primary) hypertension (principal); Z12.5 Encounter for screening for malignant neoplasm of prostate; D64.9 Anemia, unspecified; Q63.2 Ectopic kidney
CPT/HCPCS: 80053; 80061; 82607; 82728; 82746; 83540; 83550; 85025; G0103

== ENCOUNTER → 2025-01-25 08:35 | Outpatient (CLI) | payer MEDICARE, BC, SELFPAY ==
--- NOTE | 2025-01-25 08:36 | DI.US.S_ITS ---
PROCEDURE: US THYROID INDICATIONS: follow up thyroid nodule TECHNIQUE: Real-time scanning was performed of the thyroid gland, with image documentation. COMPARISON: [facility], [place], US THYROID, 02/24/2019, 10:25. FINDINGS: Thyroid: Right lobe measures 4.1 x 1.1 by 1.2 cm. Left lobe measures 2.4 x 0.8 by 1.1 cm. Isthmus is 0.3 cm thick. Echotexture is homogeneous. No suspicious nodules require follow-up IMPRESSION: Unremarkable ultrasound thyroid ACR TI-RADS definitions and recommendations: TI-RADS 1 (benign): 0 points. FNA not needed. TI-RADS 2 (not suspicious): 2 points. FNA not needed. TI-RADS 3: 3 points. * FNA if 2.5 cm or larger, follow up if 1.5 cm or larger (at 1, 3, and 5 years). TI-RADS 4: 4-6 points. * FNA if 1.5 cm or larger, follow up if 1 cm or larger (at 1, 2, 3, and 5 years). TI-RADS 5: 7 points or more. * FNA if 1 cm or larger, follow up if 0.5 cm or larger (every year for 5 years). 1. Dictated by: Sunday Sahni M.D. on 01/26/2025 at 9:36 Approved by: Sunday Sahni M.D. on 01/26/2025 at 9:51
== END ==
PROVIDERS: Family Provider Family Medicine; PCP Family Medicine; Referring Provider Family Medicine; Visit Provider Family Medicine
DX: E04.1 Nontoxic single thyroid nodule (principal)
CPT/HCPCS: 76536

== ENCOUNTER → 2025-03-15 15:41 | Outpatient (CLI) | payer MEDICARE, BC, SELFPAY | PROVIDERS: Family Provider Family Medicine; PCP Family Medicine; Visit Provider Physician Assistant | DX: R30.0 Dysuria (principal) | CPT/HCPCS: 81002; 87086 ==

== ENCOUNTER → 2025-03-31 10:22 | Outpatient (CLI) | payer MEDICARE, BC, SELFPAY ==
[2025-03-31 20:13] LABS: Cholesterol 188 mg/dL (140-199); HDL Cholesterol 45 mg/dL (40-60); Triglycerides 219 mg/dL (35-150)
== END ==
PROVIDERS: Family Provider Family Medicine; PCP Family Medicine; Visit Provider Family Medicine
DX: E78.5 Hyperlipidemia, unspecified (principal); E83.52 Hypercalcemia
CPT/HCPCS: 80061; 82310; 83970

== ENCOUNTER → 2025-07-28 13:31 | Outpatient (CLI) | payer MEDICARE, BC, SELFPAY ==
--- NOTE | 2025-07-28 13:34 | DI.RAD.S_ITS ---
PROCEDURE: XR KNEE RT 3V INDICATIONS: knee djd TECHNIQUE: 3 views of the knee were acquired. COMPARISON: None. FINDINGS: Bones: No fractures or dislocations. No suspicious bony lesions. Mild osteophytosis. Soft tissues: No joint effusion. No suspicious soft tissue calcifications. Mild chondrocalcinosis. IMPRESSION: Mild degenerative changes. Chondrocalcinosis is present. Differential diagnosis includes but is not limited to hemochromatosis, hyperparathyroidism and CPPD. Dictated by: Venancio Saxena M.D. on 07/29/2025 at 16:59 Approved by: Venancio Saxena M.D. on 07/29/2025 at 16:59
--- NOTE | 2025-07-28 13:34 | DI.RAD.S_ITS ---
PROCEDURE: XR KNEE LT 3V INDICATIONS: knee djd TECHNIQUE: 3 views of the knee were acquired. COMPARISON: None. FINDINGS: Bones: No fractures or dislocations. Mild medial compartment joint space narrowing. Mild osteophytosis. No suspicious bony lesions. Soft tissues: No joint effusion. No suspicious soft tissue calcifications. IMPRESSION: Mild degenerative changes of the knee. No acute osseous abnormalities. Dictated by: Venancio Saxena M.D. on 07/29/2025 at 16:58 Approved by: Venancio Saxena M.D. on 07/29/2025 at 16:59
== END ==
PROVIDERS: Family Provider Family Medicine; PCP Family Medicine; Referring Provider Physical Medicine & Rehabilitation; Visit Provider Physical Medicine & Rehabilitation
DX: M17.0 Bilateral primary osteoarthritis of knee (principal); M11.261 Other chondrocalcinosis, right knee
CPT/HCPCS: 73562